=== PATIENT | male | born 1940 | race Caucasian/White ===

== ENCOUNTER 2020-07-08 11:48 | Inpatient (IN) ==
--- NOTE | 2020-07-08 12:26 | Emergency Department Note ---
HPI General Chief complaint: Recheck/Abnormal Lab/Rx Stated complaint: kidney issues, anemia Time Seen by Provider: 07/08/20 12:01 Source: patient and family Mode of arrival: wheelchair Limitations: no limitations History of Present Illness HPI Narrative: Narrative: 80-year-old male presents the emergency department as a transfer from [facility] they were sent here with concerns for hematuria weight loss and blood in the stools as well as overall is deconditioning. Said for the last 3 days he has had pain with urination urinary frequency and blood in his urine. He denies any fevers or anything else or other complaints. They noticed that he was anemic there at 6. He has no history of hematuria or GI bleeds. 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 Does not look like patient is on any blood thinners at this time. Overall patient says he has no complaints said he is more thinks his kids are worried about nothing per the patient. He is denying any chest pain, shortness of breath, abdominal pain, headache, blurry vision, neck pain, back pain, neck pain, changes in bowel movements, pain with urination, pain or tingling of the arms or legs or any other complaints at this time. Related Data Home Medications Medication Instructions Recorded Confirmed No Known Home Meds 07/08/20 07/08/20 Allergies Allergy/AdvReac Type Severity Reaction Status Date / Time Penicillins Allergy Mild Itching Verified 07/08/20 11:50 Review of Systems ROS ROS Narrative: Narrative: All systems ED: reviewed and negative except as stated. [facility] Narrative Patient History Narrative: Narrative: Medical/Surgical/Family History All Active Problems (Updated 07/08/20 @ 15:57 by Sohail Smiley DO) Colonic mass (Acute) Fistula (Acute) Benign prostatic hyperplasia (Acute) KETTY (acute kidney injury) (Acute) Anemia (Acute) Social History Smoking Status: Former smoker Exam Narrative Narrative: Narrative: Vital signs noted General: Awake. Alert. No distress. Skin: Warm. Dry. No rash. HEENT: NCAT. PERRL. EOMI. No conjunctivitis. No nystagmus. No pharyngitis. Membranes moist. No otitis. No rhinitis. Neck: No PTP. Good ROM. No meningeal signs. No stridor. No thyromegaly. No JVD. Cardiovascular: RRR. No murmur. No rubs. No gallops. Respiratory: No respiratory distress. Breath sounds equal. Lungs clear. Gastrointestinal: Abdomen soft. No tenderness. No distention. Normal bowel sounds. No palpable organomegaly or masses. Back: No deformity. No CVAT. Musculoskeletal: No tenderness. No swelling. No erythema. No edema. Good peripheral pulses x 4 Lymphatic: No palpable adenopathy. Neurological: No focal neurological deficits observed. General Limitations: no limitations Course Vital Signs Vital signs: Vital Signs Temperature 98.1 F 07/08/20 11:52 Pulse Rate 80 07/08/20 11:52 Respiratory Rate 16 07/08/20 11:52 Blood Pressure 107/61 07/08/20 11:52 Pulse Oximetry (%) 100 07/08/20 11:52 Temperature 98.1 F 07/08/20 11:52 Pulse Rate 73 07/08/20 14:26 Respiratory Rate 15 07/08/20 14:26 Blood Pressure 143/59 07/08/20 14:17 Pulse Oximetry (%) 100 07/08/20 14:26 MDM MDM Narrative Medical decision making narrative: Narrative: Patient looks well on exam. He does not currently have any complaints this time. We will go ahead and do a Hemoccult on him due to this possible rectal bleeding. We will get a urinalysis CBC CMP and I will go ahead and type and screen him in case he is low that he does need a blood transfusion. Patient does seem to be pale in color. There is no acute vital sign abnormalities. No signs of infection. Unsure the source of what is causing patient's acute anemia but will look into it further at this time. Disposition will be pending result Labs originally came back he was anemic at 6.2 so I did crossmatch him for 2 units and he will get transfused 2 units of packed red blood cells. His creatinine came back at 2.9 there is some acute kidney injury and I think this is all secondary to is causing his anemia as the kidney injury. So I did speak with the urologist about the hematuria they said that hematuria is more of a outpatient work-up and nothing needs to be get done there but they are happy to see the patient if patient gets admitted. 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 Patient does have stool and air in his bladder. This does make sense as patient when I did the digital rectal exam which was negative for Hemoccult had mainly water and fluid that came out. This is not diarrhea that probably was urine actually coming out. This explains his acute kidney injury as there is prostate hypertrophy and secondary to the stool in the bladder he has having outlet obstruction which is then causing the acute kidney injury with hydronephrosis thus causing the anemia secondary to the acute kidney injury. I did speak with the hospitalist Dr. Grossman who agreed to admit the patient. Patient is admitted in stable condition. I did speak with the on-call surgeon Dr. Lind who says normally this is actually an outpatient work-up and could be done in the outpatient setting but beings that he is anemic and had acute kidney injury he will see the patient in consultation on the floor and start the process for the family. Patient was updated of this and he is okay with this plan. The surgeon asked for a CEA which was ordered by myself and is pending he will follow up the results. Lab Data Result diagrams: 07/08/20 12:30 07/08/20 12:31 Labs: Lab Results 07/08/20 07/08/20 07/08/20 Range/Units 12:30 12:31 13:54 WBC 9.1 (4.5-11.0) K/mcL RBC 4.16 L (4.50-5.90) M/mcL Hgb 6.2 L* (13.5-16.5) g/dL Hct 25.1 L (41.0-55.0) % MCV 60.3 L (80.0-100.0) fL MCH 14.9 L (26.0-34.0) pg MCHC 24.7 L (31.0-36.0) g/dL RDW 24.1 H (11.5-14.5) % Plt Count 497 H (140-440) K/mcL MPV 8.5 (7.4-10.4) fL Neut % (Auto) 81.6 H (38.0-78.0) % Lymph % (Auto) 11.1 L (15.0-49.0) % [place] % (Auto) 6.9 (1.0-12.0) % Eos % (Auto) 0.1 (0.0-7.0) % Baso % (Auto) 0.3 (0.0-2.0) % Lymph # (Auto) 1.01 L (1.50-4.80) K/mcL [place] # (Auto) 0.63 (0.10-0.90) K/mcL Eos # (Auto) 0.01 (0.00-0.70) K/mcL Baso # (Auto) 0.03 (0.00-0.20) K/mcL Absolute Neutrophils 7.42 (1.80-8.00) K/mcL PT 14.3 (11.9-14.5) sec INR 1.1 (0.9-1.1) Sodium 142 (133-145) mmol/L Potassium 4.3 (3.3-5.1) mmol/L Chloride 108 (96-108) mmol/L Carbon Dioxide 17 L (22-30) mmol/L Anion Gap 17.0 H (8.0-16.0) BUN 63 H (8-23) mg/dL Creatinine 2.9 H (0.7-1.2) mg/dL GFR Calculation 20 Glucose 122 H (70-105) mg/dL Calcium 9.0 (8.6-10.4) mg/dL Total Bilirubin 0.4 (0.1-1.0) mg/dL AST 12 (<40) U/L ALT 5 (<40) U/L Alkaline Phosphatase 68 (39-117) U/L Total Protein 6.7 (5.9-8.4) gm/dL Albumin 3.1 L (3.2-5.2) gm/dL Globulin 3.6 (2.2-3.7) gm/dL Albumin/Globulin Ratio 0.9 L (1.0-2.3) EKG Data EKG #1: EKG results narrative: EKG is done at 1224 interpreted by myself shows normal sinus rhythm at a rate of 91 QRS 109, QTc 439. There is no acute ST changes no acute T wave changes no other signs of ischemia. No sign of hypertrophy, heart strain, heart block. No WPW/Gotto/HOCM. Impression normal sinus EKG no acute changes. Discharge Plan Patient/Caregiver Discharge Instructions Pt seen by [employer] TECHNICIAN/PA only: No Clinical Impression: Colonic mass, Fistula, Benign prostatic hyperplasia, KETTY (acute kidney injury), Anemia Patient Disposition: Xfer As Inpt ([facility]) Condition: Fair Follow up with: Chloe Umanzor [Primary Care Provider] - Prescriptions: No Action No Known Home Meds RF: 0
[2020-07-08] MEDS ORDERED: 0.9 % SODIUM CHLORIDE 1,000 ML IV ONE (13:02)
[2020-07-08 13:30] LABS: Basophils # (Auto) 0.03 K/mcL (0.00-0.20); Basophils % (Auto) 0.3 % (0.0-2.0); Eosinophils # (Auto) 0.01 K/mcL (0.00-0.70); Eosinophils % (Auto) 0.1 % (0.0-7.0); Hematocrit 25.1 % (41.0-55.0); Hemoglobin 6.2 g/dL (13.5-16.5); Lymphocytes # (Auto) 1.01 K/mcL (1.50-4.80); Lymphocytes % (Auto) 11.1 % (15.0-49.0); Mean Cell Volume 60.3 fL (80.0-100.0); Mean Corpuscular HGB Conc 24.7 g/dL (31.0-36.0); Mean Platelet Volume 8.5 fL (7.4-10.4); Monocytes # (Auto) 0.63 K/mcL (0.10-0.90); Monocytes % (Auto) 6.9 % (1.0-12.0); Neutrophils % (Auto) 81.6 % (38.0-78.0); Platelet Count 497 K/mcL (140-440); RBC 4.16 M/mcL (4.50-5.90); Red Cell Distribution Width 24.1 % (11.5-14.5); WBC 9.1 K/mcL (4.5-11.0)
[2020-07-08] MEDS ORDERED: 0.9 % SODIUM CHLORIDE 250 ML IV SCH ×2 (13:45→18:13)
[2020-07-08 13:51] LABS: ALT/SGPT 5 U/L (<40); AST/SGOT 12 U/L (<40); Albumin 3.1 gm/dL (3.2-5.2); Albumin/Globulin Ratio 0.9 (1.0-2.3); Alkaline Phosphatase 68 U/L (39-117); Bilirubin,Total 0.4 mg/dL (0.1-1.0); Blood Urea Nitrogen 63 mg/dL (8-23); Carbon Dioxide 17 mmol/L (22-30); Chloride 108 mmol/L (96-108); Globulin 3.6 gm/dL (2.2-3.7); Glomerular Filtration Rate 20; Glucose 122 mg/dL (70-105)
[2020-07-08 15:12] LABS: INR 1.1 (0.9-1.1); Prothrombin Time 14.3 sec (11.9-14.5)
--- NOTE | 2020-07-08 15:25 | Cat Scan Report ---
CLINICAL INFORMATION: Hematuria and weight loss. Diarrhea COMPARISON: None. TECHNIQUE: 0.625 mm helical slices were obtained from the mid heart through the subtrochanteric regions. Following reconstruction, 2.5 mm sagittal, coronal and axial reformatted images were processed and reviewed at bone and soft tissue windows.The exam was performed using radiation dose optimization techniques including, but not limited to, automated exposure control, adjustment of the mA and/or kV according to patient size and use of iterative reconstruction technique. FINDINGS: Lung bases show scattered fibrosis. 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 No effusions. The heart is moderately enlarged with extremely heavy mitral annulus ossification. Abdominal images show the noncontrasted liver is unremarkable. There are 4-5 large stones in the gallbladder ranging up to 19 mm. No evidence of gallbladder wall thickening or other signs for cholecystitis. Intrahepatic and common bile ducts are normal caliber: CBD is 5 mm. The noncontrast pancreas and spleen are normal. Aorta biiliac endovascular graft is in satisfactory position. Diameter of the thrombosed [place] of the infrarenal abdominal aorta around the graft is 5 cm. No evidence of perigraft hemorrhage. A 10 x 5.5 soft tissue mass, apparently arising from the mid sigmoid colon, has invaded the left lateral wall of the urinary bladder. 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 There is moderate stool and gas within the urinary bladder. Primary colon carcinoma is suspected. Stomach is unremarkable. There is a 2 cm currently diverticulum projecting the descending duodenum which shows mild wall thickening. The remaining small bowel appendix and remaining colon are all normal. Moderate atrophy of the left kidney with retroperitoneal periphery of the right kidney appreciated a left kidney 7 cm in length the right kidney is 11 cm in length. Moderate left hydronephrosis hydroureter appreciated the distal ureter is encased by the sigmoid malignancy resulting in ureteral obstruction. There is also mild right hydroureter/hydronephrosis to the UVJ. Moderate prostate enlargement likely results in chronic bladder outlet obstruction - there is diffuse wall thickening urinary bladder Bone windows show no osseous abnormalities. IMPRESSION: 1. 10 x 5.5 cm pelvic soft tissue mass, likely arising from the mid sigmoid colon, has invaded the left lateral wall of the urinary bladder creating an colovesical fistula. There is moderate stool and gas within the urinary bladder. Suggest: CT-guided biopsy of the large soft tissue mass. Colon carcinoma is suspected 2. Moderate atrophy of the left kidney with compensatory hypertrophy of the right kidney. Moderate left hydronephrosis and hydroureter noted due to encasement of the ureter by the malignancy in the left false pelvis. There is also mild right hydroureter/hydronephrosis related to chronic bladder outlet narrowing due to enlarged prostate. 3. Cholelithiasis. 4. Aortoiliac endovascular graft. The [place] aorta is thrombosed around the graft. Interpreted and Authenticated by: Nathaniel Xie 07/08/20
[2020-07-08] MEDS ORDERED: ACETAMINOPHEN 325 MG TABLET PO PRN ×2 (16:17→18:13)
[2020-07-08] MEDS ORDERED: morphine 4 MG/ML VIAL IV PRN ×2 (16:17→18:13)
[2020-07-08] MEDS ORDERED: PROCHLORPERAZINE 10 MG/2 ML VIAL IV PRN ×2 (16:17→18:13)
[2020-07-08] MEDS ORDERED: HYDROcodone/APAP 5/325MG TABLET PO PRN (16:17)
[2020-07-08] MEDS ORDERED: 0.9 % SODIUM CHLORIDE 1,000 ML IV SCH (16:30)
--- NOTE | 2020-07-08 18:10 | Internal Med History&Physical ---
HPI History of Present Illness Patient information: Note initiated : 07/08/20 at 6:00 pm Service Date, if different from initiated Date: [] Patient: Shiv Gardner 80 y/o M admitted on 07/08/20 for kidney issues, anemia. Chief Complaint: [] History of present illness: Mr. Gardner is a 80 year old M with a past medical history of AAA that was repaired, COPD as well as an aortic valve replacement who was transferred to our hospital from [facility] due to hematuria, with loss and GI bleeding. As per patient, patient has been having pain with urination, urinary frequency and blood in urine over the past 3 days. In the ER, he was found to have anemia, hemoglobin 6.2. 2 units of PRBC were ordered. 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 Otherwise patient denies headache, dizziness, chest pain, shortness of breath, abdominal pain, nausea, or vomiting. Review of Systems Review of systems: Positive for hematuria and GI bleeding. All other systems were reviewed and are negative. PFSH PFSH All Active Problems Colonic mass (Acute) Fistula (Acute) Benign prostatic hyperplasia (Acute) KETTY (acute kidney injury) (Acute) Anemia (Acute) Social History smoking status: Former smoker MEDS/ALLERGIES Home Medications and Allergies Home Medications Medication Instructions Recorded Confirmed Type No Known Home Meds 07/08/20 07/08/20 History Allergies Allergy/AdvReac Type Severity Reaction Status Date / Time Penicillins Allergy Mild Itching Verified 07/08/20 11:50 EXAM Constitutional Vitals: Temp Pulse Resp BP Pulse Ox 98.1 F 73 15 143/59 100 07/08/20 11:52 07/08/20 14:26 07/08/20 14:26 07/08/20 14:17 07/08/20 14:26 Additional findings Additional findings: General: No acute distress Eye: EMOI, no conjunctival injection. HEENT: supple, no JVD or thyroid megaly Chest: No tenderness Heart: RRR, no gallop Lungs: Rhonchi bilateral Abdomen: Normal bowel sounds, soft, no tenderness Extremities: edema + in both legs, no cyanosis or clubbing Neurology: A+O x 3, no focal neurological deficits Psych: Normal mood DATA Data Completed and Pending Labs: Labs from last 24 hours 07/08/20 07/08/20 07/08/20 13:54 13:26 12:31 WBC RBC Hgb Hct MCV MCH MCHC RDW Plt Count MPV Neut % (Auto) Lymph % (Auto) [place] % (Auto) Eos % (Auto) Baso % (Auto) Lymph # (Auto) [place] # (Auto) Eos # (Auto) Baso # (Auto) Absolute Neutrophils PT 14.3 INR 1.1 Sodium 142 Potassium 4.3 Chloride 108 Carbon Dioxide 17 L Anion Gap 17.0 H BUN 63 H Creatinine 2.9 H GFR Calculation 20 Glucose 122 H Hemoglobin A1c Estim Average Glucose Calcium 9.0 Total Bilirubin 0.4 AST 12 ALT 5 Alkaline Phosphatase 68 Total Protein 6.7 Albumin 3.1 L Globulin 3.6 Albumin/Globulin Ratio 0.9 L Carcinoembryonic Ag 290.7 H 07/08/20 07/08/20 12:30 12:13 WBC 9.1 RBC 4.16 L Hgb 6.2 L* Hct 25.1 L MCV 60.3 L MCH 14.9 L MCHC 24.7 L RDW 24.1 H Plt Count 497 H MPV 8.5 Neut % (Auto) 81.6 H Lymph % (Auto) 11.1 L [place] % (Auto) 6.9 Eos % (Auto) 0.1 Baso % (Auto) 0.3 Lymph # (Auto) 1.01 L [place] # (Auto) 0.63 Eos # (Auto) 0.01 Baso # (Auto) 0.03 Absolute Neutrophils 7.42 PT INR Sodium Potassium Chloride Carbon Dioxide Anion Gap BUN Creatinine GFR Calculation Glucose Hemoglobin A1c Pending Estim Average Glucose Pending Calcium Total Bilirubin AST ALT Alkaline Phosphatase Total Protein Albumin Globulin Albumin/Globulin Ratio Carcinoembryonic Ag A/P Narrative A/P Narrative: 1. Anemia, blood loss and malignancy? Hb 6.2 in the ER, 2units of pRBCs were ordered Repeat CBC in am 2. GI bleeding 3. Colonic mass 4. Colovesicular fistula 5. Cholelithiasis Surgical consult 6. Hematuria? 7. Hydronephrosis and hydroureter, B/L Urology consult 8. KETTY or KETTY on CKD, most likely due to obstructive uropathy Intake and output Avoid nephrotoxic meds Urology consult 9. DVT prophylaxis: Heparin Time Spent With Patient Time: Total time spent is greater than 50% in coordination of care (as documented) at patient's floor/unit and/or counseling patient:
[2020-07-08 19:36] LABS: Hemoglobin A1C 5.1 % Hgb (4.0-6.0)
--- NOTE | 2020-07-08 20:07 | Event Note ---
Event Note Event Note: Parties in Attendance: Patient Pt's decisional Capacity: Yes POLST form completed: not I explained the process regarding CPR and intubation in details to the patient who declined CRP and intubation.
[2020-07-08] MEDS: 0.9 % SODIUM CHLORIDE 1,000 ML IV SCH (21:04)
[2020-07-08] MEDS: 0.9 % SODIUM CHLORIDE 10 ML SYRINGE IV SCH (22:00)
[2020-07-08] MEDS ORDERED: 0.9 % SODIUM CHLORIDE 10 ML SYRINGE IV SCH (22:00)
--- NOTE | 2020-07-08 22:04 | Internal Medicine Consult Note ---
HPI Data of Consult Primary Care Provider: Chloe Umanzor Consult Narrative Patient Information: Note initiated : 07/08/20 at 10:01 pm Service Date, if different from initiated Date: [] Patient: Shiv Gardner 80 y/o M admitted on 07/08/20 for kidney issues, anemia. Patient was found to be cachetic, anemic with HG 6.2, and Cr 2.9. patient reports urine per rectum and urethral discharge that is feculent. He has had intermittent gross hematuria. he denies significant flank pain. CT scan without contrast revealed: IMPRESSION: 1. 10 x 5.5 cm pelvic soft tissue mass, likely arising from the mid sigmoid colon, has invaded the left lateral wall of the urinary bladder creating an colovesical fistula. There is moderate stool and gas within the urinary bladder. Suggest: CT-guided biopsy of the large soft tissue mass. Colon carcinoma is suspected 2. Moderate atrophy of the left kidney with compensatory hypertrophy of the right kidney. Moderate left hydronephrosis and hydroureter noted due to encasement of the ureter by the malignancy in the left false pelvis. There is also mild right hydroureter/hydronephrosis related to chronic bladder outlet narrowing due to enlarged prostate. 3. Cholelithiasis. 4. Aortoiliac endovascular graft. The [place] aorta is thrombosed around the graft. Patient currently resting comfortable in bed. denies fevers, chills, nausea, emesis. He understands he has a pelvic mass. While he has made himself DNR, he is amenable to further work up and knowing his options from conservative management with minimal intervention to surgery. He feels improved after transfusion one unit pRBC Chief Complaint: [] cc:: CC: Florina Grossman Constitutional Constitutional: Present anorexia, fatigue and weight loss EENT Eyes: Absent blurry vision, itchy eyes and pain Cardiovascular Cardiovascular: Absent chest pain at rest, chest pain with activity and dyspnea Respiratory Respiratory: Absent cough, wheezing and stridor Gastrointestinal Gastrointestinal: Present as per HPI Genitourinary Genitourinary: as per HPI Musculoskeletal Musculoskeletal: Present muscle weakness; Absent numbness and tingling Integumentary Integumentary: Absent pruritus, rash and skin ulcer Neurological Neurological: Present weakness; Absent memory loss and numbness Psychiatric Psychiatric: Absent anxiety, confusion and memory loss Endocrine Endocrine: Present change in body appearance and fatigue; Absent palpitations Hematologic/Lymphatic Hematologic/Lymphatic: Present easy bleeding and easy bruising PFSH PFSH All Active Problems (Updated 07/08/20 @ 23:27 by Antione Fletcher MD) Hydronephrosis (Acute) Colonic mass (Acute) Fistula (Acute) Benign prostatic hyperplasia (Acute) KETTY (acute kidney injury) (Acute) Anemia (Acute) Social History smoking status: Former smoker MEDS/ALLERGIES Home Medications and Allergies Home Medications Medication Instructions Recorded Confirmed Type No Known Home Meds 07/08/20 07/08/20 History Allergies Allergy/AdvReac Type Severity Reaction Status Date / Time Penicillins Allergy Mild Itching Verified 07/08/20 11:50 EXAM Constitutional Vitals: Temp Pulse Resp BP Pulse Ox 97.7 F 80 26 H 134/55 99 07/08/20 18:53 07/08/20 18:53 07/08/20 18:53 07/08/20 18:53 07/08/20 18:53 General appearance: cooperative, no acute distress and thin Head Head exam: Present atraumatic and normocephalic Eye Eye exam: Present EOMI and normal appearance; Absent scleral icterus Respiratory Respiratory exam: Absent respiratory distress, stridor and wheezes Cardiovascular Cardiovascular exam: Present RRR GI/Abdominal GI/Abdominal exam: Absent guarding, rebound and tenderness Neurological Exam Neurological exam: Present alert and oriented X3 Psychiatric Psychiatric exam: Present normal affect; Absent agitated and anxious DATA Data Completed and Pending Labs: Labs from last 24 hours 07/08/20 07/08/20 07/08/20 13:54 13:26 12:31 WBC RBC Hgb Hct MCV MCH MCHC RDW Plt Count MPV Neut % (Auto) Lymph % (Auto) [place] % (Auto) Eos % (Auto) Baso % (Auto) Lymph # (Auto) [place] # (Auto) Eos # (Auto) Baso # (Auto) Absolute Neutrophils PT 14.3 INR 1.1 Sodium 142 Potassium 4.3 Chloride 108 Carbon Dioxide 17 L Anion Gap 17.0 H BUN 63 H Creatinine 2.9 H GFR Calculation 20 Glucose 122 H Hemoglobin A1c Estim Average Glucose Calcium 9.0 Total Bilirubin 0.4 AST 12 ALT 5 Alkaline Phosphatase 68 Total Protein 6.7 Albumin 3.1 L Globulin 3.6 Albumin/Globulin Ratio 0.9 L Carcinoembryonic Ag 290.7 H 07/08/20 07/08/20 12:30 12:13 WBC 9.1 RBC 4.16 L Hgb 6.2 L* Hct 25.1 L MCV 60.3 L MCH 14.9 L MCHC 24.7 L RDW 24.1 H Plt Count 497 H MPV 8.5 Neut % (Auto) 81.6 H Lymph % (Auto) 11.1 L [place] % (Auto) 6.9 Eos % (Auto) 0.1 Baso % (Auto) 0.3 Lymph # (Auto) 1.01 L [place] # (Auto) 0.63 Eos # (Auto) 0.01 Baso # (Auto) 0.03 Absolute Neutrophils 7.42 PT INR Sodium Potassium Chloride Carbon Dioxide Anion Gap BUN Creatinine GFR Calculation Glucose Hemoglobin A1c 5.1 Estim Average Glucose 100 Calcium Total Bilirubin AST ALT Alkaline Phosphatase Total Protein Albumin Globulin Albumin/Globulin Ratio Carcinoembryonic Ag A/P Assessment and plan (1) Colonic mass: Status: Acute (2) Fistula: Status: Acute (3) Benign prostatic hyperplasia: Status: Acute Qualifiers: Lower urinary tract symptom detail: urinary obstruction Lower urinary tract symptom presence: symptoms present Qualified Code(s): N40.1 - Benign prostatic hyperplasia with lower urinary tract symptoms; N13.8 - Other obstructive and reflux uropathy (4) Hydronephrosis: Status: Acute Narrative A/P Narrative: Discussion had with patient at bedside about potential work up and options. He has excellent comprehension of the process and his pathology. He appreciates that we will strive to present a breathe of options from conservative management to full intervention and guide his care based on his wishes. Discussion had with general surgery and the hospitalist. -the main concern from a urology standpoint short term is his renal insufficiency and the masses location over the left ureter and potential invasion into the bladder (and mild right hydronephrosis as well) - does this patient need urinary diversion with nephrostomy tubes. IR is not available at this facility. If is his renal insufficiency does not improve with transfusion and fluids, then need to transfer him. -if his Cr improves, then can plan further work up with MRI abdomen and pelvis (likely without contrast unless his Cr improves sufficiently) to better delineate the mass and its margins -would tentatively plan to take him to the OR for diagnostic cystoscopy, fistulogram, retrograde pyelograms and possible ureteral stents on Monday -would recommend NO MEYERS catheter until we know the extent of the fistula and potential invasion into the bladder wall as there is risk for significant bleeding. He is draining his urine per fistula to his rectum and this is manageable for now. -barrier cream to perineum as moisture protection. -urine culture WILL BE POSITIVE. If he remains asymptomatic for infection, would not treat as such is colonized from his fistula and will never be sterile. -follow up Cr, and if improving, then get MRI abdomen and pelvic. If worse, then transfer and consider nephrostomy tubes. Time Spent With Patient Time: Total time spent is greater than 50% in coordination of care (as documented) at patient's floor/unit and/or counseling patient: Total time spent with greater than 50% in coordination of care (as documented) at patient's floor/unit and/or counseling patient:: 25 - 35 minutes
[2020-07-08 22:36] LABS: Hematocrit 26.2 % (41.0-55.0)
[2020-07-08 22:37] LABS: Hemoglobin 7.3 g/dL (13.5-16.5)
[2020-07-08 23:01] LABS: Glomerular Filtration Rate 26
[2020-07-09] MEDS: 0.9 % SODIUM CHLORIDE 10 ML SYRINGE IV SCH ×3 (06:29→21:00)
[2020-07-09 06:45] LABS: Basophils # (Auto) 0.02 K/mcL (0.00-0.20); Basophils % (Auto) 0.3 % (0.0-2.0); Eosinophils # (Auto) 0.03 K/mcL (0.00-0.70); Eosinophils % (Auto) 0.4 % (0.0-7.0); Hematocrit 27.8 % (41.0-55.0); Hemoglobin 7.4 g/dL (13.5-16.5); Lymphocytes # (Auto) 0.91 K/mcL (1.50-4.80); Lymphocytes % (Auto) 13.6 % (15.0-49.0); Mean Corpuscular HGB Conc 26.6 g/dL (31.0-36.0); Mean Platelet Volume 8.4 fL (7.4-10.4); Monocytes # (Auto) 0.53 K/mcL (0.10-0.90); Monocytes % (Auto) 7.9 % (1.0-12.0); Neutrophils % (Auto) 77.8 % (38.0-78.0); Platelet Count 391 K/mcL (140-440); RBC 4.21 M/mcL (4.50-5.90); Red Cell Distribution Width 28.4 % (11.5-14.5); WBC 6.7 K/mcL (4.5-11.0)
[2020-07-09 07:19] LABS: Phosphorous 3.6 mg/dL (2.5-4.5)
[2020-07-09 07:28] LABS: Ferritin 24.1 ng/mL (30.0-400.0)
--- NOTE | 2020-07-09 10:04 | General Surgery Consult Note ---
HPI Data of Consult Consult date: 07/09/20 Primary Care Provider: Chloe Umanzor Consult Narrative Patient Information: Note initiated : 07/09/20 at 10:00 am Service Date, if different from initiated Date: [] Patient: Shiv Gardner 80 y/o M admitted on 07/08/20 for kidney issues, anemia. 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 CEA 290. Pt reports a significant decline in healthy beginning several months ago - loosi ng 80lbs of weight with early satiety and disinterest in flood and growing fatigue. One month ago he noted the passage of occasional blood in stool both bright read and more dark clots. He began to have pneumaturia and debris in urine several weeks ago and with significant dysuria. He was seen at OSH yesterday after his daughter convinced him to undergo workup where he was noted to be ill as above and transferred. Today pt is feeling significantly better after 2 units PRBC. He continues to pass flatus and has frequent liquid stools c/w passage of urine into sigmoid colon. No abdominal pain or distention. His Cr improved from 2.9 - > 2.3 with blood yesterday, today Cr pending Hb now 7.4 At home most amount of activity is moving around house with walker - limited by SOB Likely has heart failure with BNP of 19K PMH: ? 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 via sternotomy R elbow surgery Hm meds - OTC pain medicaitons Allergy - PNC - rash Soc - Lives locally, 2PPD smoking hx x30yrs now 15yrs remote, No etoh, no hx of excessive drinking, no drugs Fam Hx - no family hx of colon or rectal cancers Chief complaint: pelvic mass cc:: CC: Florina Grossman Constitutional Constitutional: Present fatigue, lethargy, weakness and weight loss; Absent increased appetite EENT Eyes: Present dry eye Nose, mouth and throat: Present hoarseness Cardiovascular Cardiovascular: Absent chest pain at rest and diaphoresis Respiratory Respiratory: Present dyspnea; Absent hemoptysis Gastrointestinal Gastrointestinal: Present diarrhea, early satiety and loose stools; Absent coffee ground emesis and melena Genitourinary Genitourinary: urinary frequency Musculoskeletal Musculoskeletal: Present limited range of motion Integumentary Integumentary: Absent rash Neurological Neurological: Absent loss of vision Psychiatric Psychiatric: Absent auditory hallucinations Endocrine Endocrine: Present deeping of the voice Hematologic/Lymphatic Hematologic/Lymphatic: Absent lymphadenopathy Allergic/Immunologic Allergic/Immunologic: Absent tongue swelling PFSH PFSH All Active Problems (Updated 07/09/20 @ 11:17 by David Lind MD) Pelvic mass (Acute) Hydronephrosis (Acute) Colonic mass (Acute) Fistula (Acute) Benign prostatic hyperplasia (Acute) KETTY (acute kidney injury) (Acute) Anemia (Acute) Social History smoking status: Former smoker MEDS/ALLERGIES Home Medications and Allergies Home Medications Medication Instructions Recorded Confirmed Type No Known Home Meds 07/08/20 07/08/20 History Allergies Allergy/AdvReac Type Severity Reaction Status Date / Time Penicillins Allergy Mild Itching Verified 07/08/20 11:50 Physical Examination Vital Signs Vital signs: Temp Pulse Resp BP Pulse Ox 37.1 C 79 18 125/62 95 07/09/20 08:00 07/09/20 08:00 07/09/20 08:00 07/09/20 03:24 07/09/20 08:00 General physical appearance General physical exam: no distress, no pain and cachectic; negative well nourished Eyes Eye exam: PERRL and normal ocular movement ENT ENT exam: other (adentulous ) Head Head exam expanded IM: Absent abrasion Neck Neck exam: no masses, trachea midline and no lymphadenopathy Cardiovascular Cardiovascular: MIdline sternotomy scar well healed, irregular HR, 2/6 systolic creshendo/decrescendo at R sternal border, S4, no rub. Respiratory Respiratory exam: other (Breath sounds nearly inaudiable - very distant, no adventital sounds) Abdomen Abdomen: Present soft (Thin scaphoid abdomen, no surgical scars. BS present - not highpitched, no rushes, dull to perucssion. Tender to palpation undercostal margin along R lobe of liver. Palpable minimally mobile mass in L iliac fossa - nontender. No inguinal LAD) Rectum Rectum: Present no tenderness (Large prostate. I am able to feel mass at extent of finger - hard nodular. Feels contiguous with sacrum posteriorly) Integumentary Integumentary: Present other (2x2mm ulcer on sacrum into dermis) Neurologic Neurologic: Present normal coordination; Absent confused Musculoskeletal Musculoskeletal: Present other (kyphotic) Psychiatric Psychiatric: Present oriented to time, oriented to person, oriented to place and memory intact Results Labs Result diagrams: 07/09/20 05:16 07/08/20 22:04 Labs: Abnormal lab results 07/08/20 07/08/20 07/08/20 Range/Units 12:30 12:31 13:26 RBC 4.16 L (4.50-5.90) M/mcL Hgb 6.2 L* (13.5-16.5) g/dL Hct 25.1 L (41.0-55.0) % MCV 60.3 L (80.0-100.0) fL MCH 14.9 L (26.0-34.0) pg MCHC 24.7 L (31.0-36.0) g/dL RDW 24.1 H (11.5-14.5) % Plt Count 497 H (140-440) K/mcL Neut % (Auto) 81.6 H (38.0-78.0) % Lymph % (Auto) 11.1 L (15.0-49.0) % Lymph # (Auto) 1.01 L (1.50-4.80) K/mcL Carbon Dioxide 17 L (22-30) mmol/L Anion Gap 17.0 H (8.0-16.0) BUN 63 H (8-23) mg/dL Creatinine 2.9 H (0.7-1.2) mg/dL Glucose 122 H (70-105) mg/dL Iron (61-157) ug/dL Transferrin % Sat (20-50) % Ferritin (30.0-400.0) ng/mL NT-Pro-B Natriuret Pep (<450.0) pg/mL Albumin 3.1 L (3.2-5.2) gm/dL Albumin/Globulin Ratio 0.9 L (1.0-2.3) Carcinoembryonic Ag 290.7 H (<3.4) ng/mL 07/08/20 07/08/20 07/09/20 Range/Units 22:04 22:04 05:16 RBC (4.50-5.90) M/mcL Hgb 7.3 L (13.5-16.5) g/dL Hct 26.2 L (41.0-55.0) % MCV (80.0-100.0) fL MCH (26.0-34.0) pg MCHC (31.0-36.0) g/dL RDW (11.5-14.5) % Plt Count (140-440) K/mcL Neut % (Auto) (38.0-78.0) % Lymph % (Auto) (15.0-49.0) % Lymph # (Auto) (1.50-4.80) K/mcL Carbon Dioxide (22-30) mmol/L Anion Gap (8.0-16.0) BUN (8-23) mg/dL Creatinine 2.3 H (0.7-1.2) mg/dL Glucose (70-105) mg/dL Iron 20 L (61-157) ug/dL Transferrin % Sat 9 L (20-50) % Ferritin 24.1 L (30.0-400.0) ng/mL NT-Pro-B Natriuret Pep 76143.0 H (<450.0) pg/mL Albumin (3.2-5.2) gm/dL Albumin/Globulin Ratio (1.0-2.3) Carcinoembryonic Ag (<3.4) ng/mL 07/09/20 Range/Units 05:16 RBC 4.21 L (4.50-5.90) M/mcL Hgb 7.4 L (13.5-16.5) g/dL Hct 27.8 L (41.0-55.0) % MCV 66.0 L (80.0-100.0) fL MCH 17.6 L (26.0-34.0) pg MCHC 26.6 L (31.0-36.0) g/dL RDW 28.4 H (11.5-14.5) % Plt Count (140-440) K/mcL Neut % (Auto) (38.0-78.0) % Lymph % (Auto) 13.6 L (15.0-49.0) % Lymph # (Auto) 0.91 L (1.50-4.80) K/mcL Carbon Dioxide (22-30) mmol/L Anion Gap (8.0-16.0) BUN (8-23) mg/dL Creatinine (0.7-1.2) mg/dL Glucose (70-105) mg/dL Iron (61-157) ug/dL Transferrin % Sat (20-50) % Ferritin (30.0-400.0) ng/mL NT-Pro-B Natriuret Pep (<450.0) pg/mL Albumin (3.2-5.2) gm/dL Albumin/Globulin Ratio (1.0-2.3) Carcinoembryonic Ag (<3.4) ng/mL Diabetes panel 07/08/20 07/08/20 07/08/20 Range/Units 12:13 12:31 22:04 Sodium 142 (133-145) mmol/L Potassium 4.3 (3.3-5.1) mmol/L Chloride 108 (96-108) mmol/L Carbon Dioxide 17 L (22-30) mmol/L BUN 63 H (8-23) mg/dL Creatinine 2.9 H 2.3 H (0.7-1.2) mg/dL Glucose 122 H (70-105) mg/dL Hemoglobin A1c 5.1 (4.0-6.0) % Hgb Calcium 9.0 (8.6-10.4) mg/dL AST 12 (<40) U/L ALT 5 (<40) U/L Alkaline Phosphatase 68 (39-117) U/L Total Protein 6.7 (5.9-8.4) gm/dL Albumin 3.1 L (3.2-5.2) gm/dL Calcium panel 07/08/20 07/09/20 Range/Units 12:31 05:16 Calcium 9.0 (8.6-10.4) mg/dL Phosphorus 3.6 (2.5-4.5) mg/dL Albumin 3.1 L (3.2-5.2) gm/dL Pituitary panel 07/08/20 07/08/20 Range/Units 12:31 22:04 Sodium 142 (133-145) mmol/L Potassium 4.3 (3.3-5.1) mmol/L Chloride 108 (96-108) mmol/L Carbon Dioxide 17 L (22-30) mmol/L BUN 63 H (8-23) mg/dL Creatinine 2.9 H 2.3 H (0.7-1.2) mg/dL Glucose 122 H (70-105) mg/dL Calcium 9.0 (8.6-10.4) mg/dL Adrenal panel 07/08/20 07/08/20 Range/Units 12:31 22:04 Sodium 142 (133-145) mmol/L Potassium 4.3 (3.3-5.1) mmol/L Chloride 108 (96-108) mmol/L Carbon Dioxide 17 L (22-30) mmol/L BUN 63 H (8-23) mg/dL Creatinine 2.9 H 2.3 H (0.7-1.2) mg/dL Glucose 122 H (70-105) mg/dL Calcium 9.0 (8.6-10.4) mg/dL Total Bilirubin 0.4 (0.1-1.0) mg/dL AST 12 (<40) U/L ALT 5 (<40) U/L Alkaline Phosphatase 68 (39-117) U/L Total Protein 6.7 (5.9-8.4) gm/dL Albumin 3.1 L (3.2-5.2) gm/dL All other labs normal. 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 Mass Identity With markedly elevated CEA mass is almost certainly a colon primary adenocarcinoma. Needs tissue dx. - Plan for colon prep tomorrow, after KETTY given more time to recover, with plans for colonoscopy to obtain dx and eval for more proximal metacrenous leasions. Metastatic work up - With R hepatic tenderness and very high CEA I am concerned for Liver mets - Close review of low sensitivity non-contrast CT on admission does not reveal radiolucent lesions. - Plan for hepatic MRI with pelvic MRI as below - Needs CT non-con thin lungs for eval of pulm mets Resectability: - Mass is large involves a moderate segment of sigmoid colon and L bladder wall. More concerning however it appers to encase the L ureter causing moderate hydronephrosis. Most concerning however - the mass appears to encase the L common iliac artery - with underling EVAR stent in place as well as L iliac vein. The mass encases the internal iliac artery and a small segment of the external iliac artery. Further more the sacral promontory abuts tumor and there is cortical erosion of anterior S2 near the L Ant sacral foremen at S2 on bone windows. - The overall impression is one of nonresectability - however given images are a non-contrast study, reasonable to proceed with pelvic MRI to asses tissue planes. - As degree of involvement is critical to making respectability decision prefer contrast MR, will await KETTY resolution before performing. Fitness/Desire for surgery if indicated: - Agree with echo to eval cardiac function - Pt is DNR/DNI he wants a workup to understand extent of disease but is not en thusiastic about potentially taking on a large morbid surgery such as a multi- visceral pelvic exenteration. May be more amenable to palliative approach with ureter stenting, trial of neoadj/palliative chemo. Plan summary: Volume resus and follow correction of KETTY CT chest - thins, today Colonoscopy prep tomorrow with plan for colonoscopy 07/11 Contrast MRI pelvis and liver once/if KETTY resolves Will continue to follow with you David Lind MD General Surgery Time Spent With Patient Time: Total time spent is greater than 50% in coordination of care (as documented) at patient's floor/unit and/or counseling patient:
[2020-07-09] MEDS: 0.9 % SODIUM CHLORIDE 1,000 ML IV SCH ×3 (10:34→22:54)
--- NOTE | 2020-07-09 14:02 | Internal Med Progress Note ---
SUBJECTIVE Subjective Patient information: Note initiated : 07/09/20 at 1:59 pm Service Date, if different from initiated Date: [] Patient: Shiv Gardner a 80 y/o M admitted on 07/08/20 for kidney issues, anemia. Chief Complaint: [] Mr. Gardner is a 80 year old M with a past medical history of AAA that was repaired, COPD as well as an aortic valve replacement who was transferred to our hospital from [facility] due to hematuria, with loss and GI bleeding. As per patient, patient has been having pain with urination, urinary frequency and blood in urine over the past 3 days. In the ER, he was found to have anemia, hemoglobin 6.2. 2 units of PRBC were ordered. 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 Otherwise patient denies headache, dizziness, chest pain, shortness of breath, abdominal pain, nausea, or vomiting. 07/09 The patient does not have any complaints. Hemoglobin 7.4 today. He received 2 units of PRBCs yesterday. He will probably have colonoscopy biopsy on Monday Monitor creatinine Review of Systems Review of systems: Positive for hematuria and GI bleeding. All other systems were reviewed and are negative. Constitutional Vitals: Vital Signs Temp Pulse Resp BP Pulse Ox 98.4 F 86 18 130/86 96 07/09/20 12:00 07/09/20 12:00 07/09/20 12:00 07/09/20 12:00 07/09/20 12:00 Period Temp Pulse Resp BP Sys/[place]atham Pulse Ox Last 24 Hr 97.1 F-98.7 F 60-94 14-26 124-163/50-92 95-100 Intake and Output 07/08/20 07/09/20 07/09/20 21:59 05:59 13:59 Intake Total 7278 369 8761 Output Total 2 1 2 Balance 829 97 6585 Weight 70.307 kg 72.575 kg 72.575 kg Patient Weight 07/10/20 05:59 Weight 72.575 kg Intake & Output: Intake & Output 07/08/20 07/09/20 07/09/20 21:59 05:59 13:59 Intake Total 4867 292 9640 Output Total 2 1 2 Balance 932 85 6014 Weight 70.307 kg 72.575 kg 72.575 kg Intake: Nourishment/Supplement quantity 120 (ml) IV 1000 1000 Sodium Chloride 0.9% 1,000 ml @ 1000 1000 75 mls/hr IV .[id number] [facility] Rx#: [id number] Oral 100 60 Output: # of times incontinent of urine 2 1 2 Other: Meal Lunch Percent of Meal Consumed 25% Feeding Ability Assist with Tray Set Up Nourishment/Supplement name Enlive Stool Size Moderate Smear Stool Color Brown Stool Consistency Liquid Watery Loose # Bowel Movements 1 # of times incontinent of 1 1 Bowels Additional findings Additional findings: General: No acute distress Eye: EMOI, no conjunctival injection. HEENT: supple, no JVD or thyroid megaly Chest: No tenderness Heart: RRR, no gallop Lungs: Rhonchi bilateral Abdomen: Normal bowel sounds, soft, no tenderness Extremities: edema + in both legs, no cyanosis or clubbing Neurology: A+O x 3, no focal neurological deficits Psych: Normal mood OBJ DATA Labs CBC & Chem 7: 07/09/20 05:16 07/08/20 22:04 Labs: Abnormal Lab Results 07/09/20 07/09/20 07/08/20 05:16 05:16 22:04 RBC 4.21 L Hgb 7.4 L Hct 27.8 L MCV 66.0 L MCH 17.6 L MCHC 26.6 L RDW 28.4 H Plt Count Neut % (Auto) Lymph % (Auto) 13.6 L Lymph # (Auto) 0.91 L Carbon Dioxide Anion Gap BUN Creatinine 2.3 H Glucose Iron 20 L Transferrin % Sat 9 L Ferritin 24.1 L NT-Pro-B Natriuret Pep 72136.0 H Albumin Albumin/Globulin Ratio Carcinoembryonic Ag 07/08/20 07/08/20 07/08/20 22:04 13:26 12:31 RBC Hgb 7.3 L Hct 26.2 L MCV MCH MCHC RDW Plt Count Neut % (Auto) Lymph % (Auto) Lymph # (Auto) Carbon Dioxide 17 L Anion Gap 17.0 H BUN 63 H Creatinine 2.9 H Glucose 122 H Iron Transferrin % Sat Ferritin NT-Pro-B Natriuret Pep Albumin 3.1 L Albumin/Globulin Ratio 0.9 L Carcinoembryonic Ag 290.7 H 07/08/20 12:30 RBC 4.16 L Hgb 6.2 L* Hct 25.1 L MCV 60.3 L MCH 14.9 L MCHC 24.7 L RDW 24.1 H Plt Count 497 H Neut % (Auto) 81.6 H Lymph % (Auto) 11.1 L Lymph # (Auto) 1.01 L Carbon Dioxide Anion Gap BUN Creatinine Glucose Iron Transferrin % Sat Ferritin NT-Pro-B Natriuret Pep Albumin Albumin/Globulin Ratio Carcinoembryonic Ag Meds: Medications Acetaminophen (Tylenol) 650 mg PO Q6HP PRN; Protocol PRN Reason: Per Pain Protocol/Fever > 101 Hydrocodone Bitart/Acetaminophen ([place] 5/325mg) 1 tab PO Q6HP PRN; Protocol PRN Reason: Per Pain Protocol Sodium Chloride (Sodium Chloride 0.9%) 1,000 mls @ 75 mls/hr IV .[id number] [facility] Last Admin: 07/09/20 12:03 Dose: 75 mls/hr Documented by: Morphine Sulfate (Morphine) 2 mg IV Q4HP PRN; Protocol PRN Reason: Per Pain Protocol Polyethylene Glycol/Electrolytes (Golytely) 4,000 ml PO ONCE ONE Stop: 07/10/20 08:01 Prochlorperazine (Compazine) 5 mg IV Q6HP PRN PRN Reason: Nausea And Vomiting Sodium Chloride (Saline Flush) 10 ml IV Q8 [facility] Last Admin: 07/09/20 06:29 Dose: Not Given Documented by: A/P Narrative A/P Narrative: 1. Anemia, blood loss and malignancy? Hb 6.2 in the ER, 2units of pRBCs were ordered Repeat CBC in am 2. GI bleeding 3. Colonic mass 4. Colovesicular fistula 5. Cholelithiasis GS Dr. Lind is on board. Really appreciate it. Pt may have colonoscopy and biopsy on Monday. NPO after midnight on Monday. 6. Hematuria? 7. Hydronephrosis and hydroureter, B/L Urology Dr. Fletcher is on board. Really appreciate it. 8. KETTY or KETTY on CKD, most likely due to obstructive uropathy Intake and output Avoid nephrotoxic meds Urology Dr. Fletcher is on board. 9. DVT prophylaxis: SCD. No pharmacological DVT Prophylaxis due to bleeding. Time Spent With Patient Time: Total time spent is greater than 50% in coordination of care (as documented) at patient's floor/unit and/or counseling patient: QUALITY VTE Deep Vein Thrombosis/Pulmonary Embolism Present on Admission: No
--- NOTE | 2020-07-09 16:34 | Cat Scan Report ---
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 Evaluate for metastases history of chronic smoking COMPARISON: None TECHNIQUE: 0.625 mm axial slices were obtained from the lung apices through the bases without intravenous contrast. 2.5 mm Sagittal, coronal and axial reformatted images were processed and reviewed at bone, lung and soft tissue windows. 7 mm axial MIP images were also reconstructed to optimize pulmonary nodule detection.The exam was performed using radiation dose optimization techniques including, but not limited to, automated exposure control, adjustment of the mA and/or kV according to patient size and use of iterative reconstruction technique. FINDINGS: Pulmonary parenchymal windows show moderate centrilobular emphysema featuring chronic bronchitis with elevated lung volumes and wall thickening/dilatation of bronchi. There are multiple bullae predominantly within the upper lobes and scattered scarring in the periphery of both lower lobes. There is a 9 mm well-circumscribed pleural-based nodule in the posterior segment of the right upper lobe on image 45. No other nodules appreciated. No infiltrates. Pleural spaces are normal. Mediastinal windows show moderate cardiomegaly. Heavy mitral annular valve calcification is seen. There is also calcification in the aortic valve. CABG/bypass changes noted. The central pulmonary artery are moderately enlarged: main pulmonary diameter 4.6 cm. Thoracic aorta normal caliber and contains heavy atherosclerotic plaque particularly the ascending thoracic aorta versus very heavy calcification. There is no adenopathy in the mediastinal hilar or axillary region. The thyroid is diminutive. The esophagus is grossly normal. Bone windows show no osseous metastases. Moderate degenerative disc disease throughout the thoracic spine IMPRESSION: 1. 9 mm well-circumscribed pleural-based nodule in the posterior segment of the right upper lobe. This is more likely benign subpulmonic lymph node rather than primary lung carcinoma or a metastasis. 2. Moderate centrilobular emphysema. 3. Moderate central pulmonary artery enlargement compatible with pulmonary hypertension related to emphysema. 4. Moderate cardiomegaly with heavy calcification in the aortic and mitral valves. Sternotomy/CABG changes noted. Interpreted and Authenticated by: Nathaniel Xie 07/09/20
[2020-07-09] MEDS: PANTOPRAZOLE 40 MG TABLET PO SCH (20:57)
[2020-07-10] MEDS: 0.9 % SODIUM CHLORIDE 1,000 ML IV SCH ×4 (02:28→16:13)
[2020-07-10] MEDS: 0.9 % SODIUM CHLORIDE 10 ML SYRINGE IV SCH ×2 (05:48→13:37)
[2020-07-10 07:52] LABS: Basophils # (Auto) 0.04 K/mcL (0.00-0.20); Basophils % (Auto) 0.7 % (0.0-2.0); Eosinophils % (Auto) 1.7 % (0.0-7.0); Hematocrit 29.2 % (41.0-55.0); Hemoglobin 7.7 g/dL (13.5-16.5); Lymphocytes # (Auto) 1.38 K/mcL (1.50-4.80); Lymphocytes % (Auto) 23.5 % (15.0-49.0); Mean Cell Volume 68.1 fL (80.0-100.0); Mean Corpuscular HGB Conc 26.4 g/dL (31.0-36.0); Mean Platelet Volume 8.5 fL (7.4-10.4); Monocytes # (Auto) 0.55 K/mcL (0.10-0.90); Monocytes % (Auto) 9.4 % (1.0-12.0); Neutrophils % (Auto) 64.7 % (38.0-78.0); Platelet Count 351 K/mcL (140-440); RBC 4.29 M/mcL (4.50-5.90); Red Cell Distribution Width 28.6 % (11.5-14.5); WBC 5.9 K/mcL (4.5-11.0)
[2020-07-10] MEDS ORDERED: PEG 3350/NA SULF,BICARB,CL/KCL 4,000 ML ORAL.SOL PO ONE (08:00)
[2020-07-10] MEDS: FERROUS SULFATE 325 MG TABLET PO SCH (08:14)
[2020-07-10 08:23] LABS: Blood Urea Nitrogen 37 mg/dL (8-23); Calcium 8.6 mg/dL (8.6-10.4); Carbon Dioxide 16 mmol/L (22-30); Chloride 118 mmol/L (96-108); Glomerular Filtration Rate 37; Glucose 84 mg/dL (70-105)
--- NOTE | 2020-07-10 11:54 | Internal Med Progress Note ---
SUBJECTIVE Subjective Patient information: Note initiated : 07/10/20 at 11:53 am Service Date, if different from initiated Date: [] Patient: Shiv Gardner 80 y/o M admitted on 07/08/20 for kidney issues, anemia. Chief Complaint: [] Mr. 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 As per patient, patient has been having pain with urination, urinary frequency and blood in urine over the past 3 days. In the ER, he was found to have anemia, hemoglobin 6.2. 2 units of PRBC were ordered. 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 Otherwise patient denies headache, dizziness, chest pain, shortness of breath, abdominal pain, nausea, or vomiting. 07/09 The patient does not have any complaints. Hemoglobin 7.4 today. He received 2 units of PRBCs yesterday. He will probably have colonoscopy biopsy on Monday Monitor creatinine 07/10 When I saw this patient this morning, he was sleeping. He does not have any complaints. He has a tachycardia and tachypnea at times -increased IV fluid to 100 cc/h RN study compatible with iron deficiency -iron supplement Review of Systems Review of systems: Positive for hematuria and GI bleeding. All other systems were reviewed and are negative. Constitutional Vitals: Vital Signs Temp Pulse Resp BP Pulse Ox 99.3 F H 67 18 145/55 98 07/10/20 07:58 07/10/20 07:58 07/10/20 07:58 07/10/20 07:58 07/10/20 07:58 Period Temp Pulse Resp BP Sys/Latham Pulse Ox Last 24 Hr 97.6 F-99.8 F 62-98 16-24 120-145/53-86 94-98 Intake and Output 07/09/20 07/10/20 07/10/20 21:59 05:59 13:59 Intake Total 120 1200 Output Total 3 Balance 117 1200 Weight 72.802 kg Intake & Output: Intake & Output 07/09/20 07/10/20 07/10/20 21:59 05:59 13:59 Intake Total 120 1200 Output Total 3 Balance 117 1200 Weight 72.802 kg Intake: IV 1000 Sodium Chloride 0.9% 1,000 ml @ 1000 75 mls/hr IV .[id number] [facility] Rx#: [id number] Oral 120 200 Output: # of times incontinent of urine 3 Other: Stool Size Moderate Stool Color Brown Stool Consistency Liquid # Bowel Movements 1 # of times incontinent of 1 Bowels Additional findings Additional findings: General: No acute distress Eye: EMOI, no conjunctival injection. HEENT: supple, no JVD or thyroid megaly Chest: No tenderness Heart: RRR, no gallop Lungs: Rhonchi bilateral Abdomen: Normal bowel sounds, soft, no tenderness Extremities: edema + in both legs, no cyanosis or clubbing Neurology: A+O x 3, no focal neurological deficits Psych: Normal mood OBJ DATA Labs CBC & Chem 7: 07/10/20 05:50 07/10/20 05:50 Labs: Abnormal Lab Results 07/10/20 07/10/20 07/09/20 05:50 05:50 05:16 RBC 4.29 L 4.21 L Hgb 7.7 L 7.4 L Hct 29.2 L 27.8 L MCV 68.1 L 66.0 L MCH 17.9 L 17.6 L MCHC 26.4 L 26.6 L RDW 28.6 H 28.4 H Plt Count Neut % (Auto) Lymph % (Auto) 13.6 L Lymph # (Auto) 1.38 L 0.91 L Sodium 148 H Chloride 118 H Carbon Dioxide 16 L Anion Gap BUN 37 H Creatinine 1.7 H Glucose Iron Transferrin % Sat Ferritin NT-Pro-B Natriuret Pep Albumin Albumin/Globulin Ratio Carcinoembryonic Ag 07/09/20 07/08/20 07/08/20 05:16 22:04 22:04 RBC Hgb 7.3 L Hct 26.2 L MCV MCH MCHC RDW Plt Count Neut % (Auto) Lymph % (Auto) Lymph # (Auto) Sodium Chloride Carbon Dioxide Anion Gap BUN Creatinine 2.3 H Glucose Iron 20 L Transferrin % Sat 9 L Ferritin 24.1 L NT-Pro-B Natriuret Pep 69932.0 H Albumin Albumin/Globulin Ratio Carcinoembryonic Ag 07/08/20 07/08/20 07/08/20 13:26 12:31 12:30 RBC 4.16 L Hgb 6.2 L* Hct 25.1 L MCV 60.3 L MCH 14.9 L MCHC 24.7 L RDW 24.1 H Plt Count 497 H Neut % (Auto) 81.6 H Lymph % (Auto) 11.1 L Lymph # (Auto) 1.01 L Sodium Chloride Carbon Dioxide 17 L Anion Gap 17.0 H BUN 63 H Creatinine 2.9 H Glucose 122 H Iron Transferrin % Sat Ferritin NT-Pro-B Natriuret Pep Albumin 3.1 L Albumin/Globulin Ratio 0.9 L Carcinoembryonic Ag 290.7 H Meds: Medications Acetaminophen (Tylenol) 650 mg PO Q6HP PRN; Protocol PRN Reason: Per Pain Protocol/Fever > 101 Hydrocodone Bitart/Acetaminophen ([place] 5/325mg) 1 tab PO Q6HP PRN; Protocol PRN Reason: Per Pain Protocol Ferrous Sulfate (Ferrous Sulfate) 325 mg PO [facility] Last Admin: 07/10/20 08:14 Dose: 325 mg Documented by: Sodium Chloride (Sodium Chloride 0.9%) 1,000 mls @ 100 mls/hr IV .Q10H [facility] Morphine Sulfate (Morphine) 2 mg IV Q4HP PRN; Protocol PRN Reason: Per Pain Protocol Pantoprazole Sodium (Protonix) 40 mg PO [facility] Last Admin: 07/09/20 20:57 Dose: 40 mg Documented by: Prochlorperazine (Compazine) 5 mg IV Q6HP PRN PRN Reason: Nausea And Vomiting Sodium Chloride (Saline Flush) 10 ml IV Q8 [facility] Last Admin: 07/10/20 05:48 Dose: Not Given Documented by: A/P Narrative A/P Narrative: 1. Anemia, blood loss and malignancy? Hb 6.2 in the ER, S/p 2 units of pRBCs were ordered Hb 7.7 today Ferrous sulph 325 mg daily Repeat CBC in am 2. GI bleeding 3. Colonic mass 4. Colovesicular fistula 5. Cholelithiasis GS Dr. Lind is on board. Really appreciate it. Pt may have colonoscopy and biopsy on Monday. NPO after midnight on Monday. 6. Hematuria? 7. Hydronephrosis and hydroureter, B/L Urology Dr. Fletcher is on board. Really appreciate it. 8. KETTY or KETTY on CKD, most likely due to obstructive uropathy creatinine trending down to 1.7 today Intake and output Avoid nephrotoxic meds Urology Dr. Fletcher is on board. 9. DVT prophylaxis: SCD. No pharmacological DVT Prophylaxis due to bleeding. Time Spent With Patient Time: Total time spent is greater than 50% in coordination of care (as documented) at patient's floor/unit and/or counseling patient: QUALITY VTE Deep Vein Thrombosis/Pulmonary Embolism Present on Admission: No
--- NOTE | 2020-07-10 18:13 | General Surgery Progress Note ---
SUBJECTIVE Subjective Patient information: Note initiated : 07/10/20 at 6:10 pm Service Date, if different from initiated Date: [] Patient: Shiv Gardner 80 y/o M admitted on 07/08/20 for kidney issues, anemia. Chief Complaint: S: feeling better today. 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 - for complete management stratagy please see consult note Plan for colonoscopy and biopsies Risks of bleeding, infection, perforation, missed leasion discussed Consent obtained All questions answered David Lind MD Constitutional Vitals: Vital Signs Temp Pulse Resp BP Pulse Ox 37.8 C H 99 H 18 116/60 96 07/10/20 16:00 07/10/20 16:00 07/10/20 16:00 07/10/20 16:00 07/10/20 16:00 Period Temp Pulse Resp BP Sys/Latham Pulse Ox Last 24 Hr 36.6 C-37.8 C 62-99 16-24 116-152/53-71 94-98 Intake and Output 07/10/20 07/10/20 07/10/20 05:59 13:59 21:59 Intake Total 1200 480 390 Output Total 1 1 Balance 1200 479 389 Intake & Output: Intake & Output 07/10/20 07/10/20 07/10/20 05:59 13:59 21:59 Intake Total 1200 480 390 Output Total 1 1 Balance 1200 479 389 Intake: IV 1000 390 Sodium Chloride 0.9% 1,000 ml @ 1000 390 100 mls/hr IV .Q10H [facility] Rx#: [id number] Oral 200 480 Output: # of times incontinent of urine 1 1 Other: Meal Lunch Percent of Meal Consumed 100% Stool Size Copious Large Stool Color Brown Brown Green Stool Consistency Liquid Liquid Watery Loose # Voids 1 # Bowel Movements 1 1 # of times incontinent of 1 1 Bowels A/P Time Spent With Patient Time: Total time spent is greater than 50% in coordination of care (as documented) at patient's floor/unit and/or counseling patient:
[2020-07-10] MEDS: PANTOPRAZOLE 40 MG TABLET PO SCH (20:54)
[2020-07-11] MEDS: 0.9 % SODIUM CHLORIDE 1,000 ML IV SCH ×3 (00:25→07:29)
[2020-07-11] MEDS: 0.9 % SODIUM CHLORIDE 10 ML SYRINGE IV SCH ×4 (00:26→21:55)
[2020-07-11 06:00] LABS: Basophils # (Auto) 0.03 K/mcL (0.00-0.20); Basophils % (Auto) 0.6 % (0.0-2.0); Eosinophils # (Auto) 0.03 K/mcL (0.00-0.70); Eosinophils % (Auto) 0.6 % (0.0-7.0); Hematocrit 26.6 % (41.0-55.0); Hemoglobin 7.3 g/dL (13.5-16.5); Lymphocytes # (Auto) 1.14 K/mcL (1.50-4.80); Lymphocytes % (Auto) 21.8 % (15.0-49.0); Mean Cell Volume 65.7 fL (80.0-100.0); Mean Corpuscular HGB Conc 27.4 g/dL (31.0-36.0); Mean Platelet Volume 8.7 fL (7.4-10.4); Monocytes # (Auto) 0.51 K/mcL (0.10-0.90); Monocytes % (Auto) 9.8 % (1.0-12.0); Neutrophils % (Auto) 67.2 % (38.0-78.0); Platelet Count 339 K/mcL (140-440); RBC 4.05 M/mcL (4.50-5.90); Red Cell Distribution Width 28.6 % (11.5-14.5); WBC 5.2 K/mcL (4.5-11.0)
[2020-07-11 06:37] LABS: Blood Urea Nitrogen 30 mg/dL (8-23); Calcium 8.3 mg/dL (8.6-10.4); Carbon Dioxide 16 mmol/L (22-30); Chloride 119 mmol/L (96-108); Glomerular Filtration Rate 37; Glucose 81 mg/dL (70-105)
[2020-07-11] MEDS: FERROUS SULFATE 325 MG TABLET PO SCH (07:29)
[2020-07-11] MEDS ORDERED: LACTATED RINGERS 1,000 ML IV SCH (08:15)
[2020-07-11] MEDS ORDERED: LIDOCAINE HCL/PF 100 MG/5 ML SYRINGE IV ONE (09:50)
[2020-07-11] MEDS ORDERED: PROPOFOL 200 MG/20 ML VIAL IV ONE (09:50)
[2020-07-11] MEDS ORDERED: KETAMINE 100 MG/ML ML ONE (09:50)
[2020-07-11] MEDS ORDERED: SIMETHICONE 40 MG/0.6 ML ML PO ONE (10:15)
--- NOTE | 2020-07-11 10:52 | Brief Operative Note ---
Brief Operative Note Date of procedure: 07/11/20 Pre-op diagnosis: sigmoid coancer Post-op diagnosis: same Procedure: Flexiable sigmoidoscopy Multiple biopsies of sigmoid, high rectal mass Cold biopsy of rectal polyp Grafts/Implants: No Anesthesia: MAC Findings: 1) on MARIZA large circumferential mass - densely adherent posteriorly to sacrum and L lateral side wall 2) Circumferential, necrotic, friable, fungating mass extends from ~12 cm to 25cm 3) Stricture at 20cm - does not permit passage of regular or pediatric colonoscope 4) Multiple rectal polyps - career representative sample taken Complications: none Surgeon: David Lind Estimated blood loss (cc): 10 Specimens Removed/Pathology: other (1) Sigmoid mass, 2) rectal polyp) Condition: stable Disposition: PACU
--- NOTE | 2020-07-11 11:45 | Internal Med Progress Note ---
SUBJECTIVE Subjective Patient information: Note initiated : 07/11/20 at 11:40 am Service Date, if different from initiated Date: [] Patient: Shiv Gardner 80 y/o M admitted on 07/08/20 for kidney issues, anemia. Chief Complaint: [] Mr. 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 As per patient, patient has been having pain with urination, urinary frequency and blood in urine over the past 3 days. In the ER, he was found to have anemia, hemoglobin 6.2. 2 units of PRBC were ordered. 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 Otherwise patient denies headache, dizziness, chest pain, shortness of breath, abdominal pain, nausea, or vomiting. 07/09 The patient does not have any complaints. Hemoglobin 7.4 today. He received 2 units of PRBCs yesterday. He will probably have colonoscopy biopsy on Monday Monitor creatinine 07/10 When I saw this patient this morning, he was sleeping. He does not have any complaints. He has a tachycardia and tachypnea at times -increased IV fluid to 100 cc/h RN study compatible with iron deficiency -iron supplement 07/11 Patient feels weak. Otherwise that she does not have any complaints. Flexiable sigmoidoscopy by Dr. Lind on 07/11/20 Respiration rate 24, heart rate 98, temperature 99.3 Hemoglobin 7.3, sodium of 147 - lR Potassium 3.[address] Lind and Dr. Rich are on board Review of Systems Review of systems: Positive for hematuria and GI bleeding. All other systems were reviewed and are negative. Constitutional Vitals: Vital Signs Temp Pulse Resp BP Pulse Ox 98.7 F 70 20 113/54 100 07/11/20 06:58 07/11/20 10:40 07/11/20 10:40 07/11/20 10:40 07/11/20 10:40 Period Temp Pulse Resp BP Sys/Latham Pulse Ox Last 24 Hr 98.3 F-100.1 F 70-103 16-24 113-152/54-69 94-100 Intake and Output 07/10/20 07/11/20 07/11/20 21:59 05:59 13:59 Intake Total 390 1000 Output Total 1 Balance 389 1000 Weight 72.717 kg Intake & Output: Intake & Output 07/10/20 07/11/20 07/11/20 21:59 05:59 13:59 Intake Total 390 1000 Output Total 1 Balance 389 1000 Weight 72.717 kg Intake: IV 390 1000 Sodium Chloride 0.9% 1,000 ml @ 390 1000 100 mls/hr IV .Q10H [facility] Rx#: [id number] Output: # of times incontinent of urine 1 Other: Stool Size Large Small Copious Stool Color Brown Brown Green Stool Consistency Liquid Liquid Liquid Watery Watery Loose Loose # Voids 1 # Bowel Movements 1 1 # of times incontinent of 1 1 1 Bowels Additional findings Additional findings: General: Cachectic, no acute distress Eye: EMOI, no conjunctival injection. HEENT: supple, no JVD or thyroid megaly Chest: No tenderness Heart: RRR, no gallop Lungs: Rhonchi bilateral Abdomen: Normal bowel sounds, soft, no tenderness Extremities: edema + in both legs, no cyanosis or clubbing Neurology: A+O x 3, no focal neurological deficits Psych: Normal mood OBJ DATA Labs CBC & Chem 7: 07/11/20 05:11 07/11/20 05:11 Labs: Abnormal Lab Results 07/11/20 07/11/20 07/10/20 05:11 05:11 05:50 RBC 4.05 L Hgb 7.3 L Hct 26.6 L MCV 65.7 L MCH 18.0 L MCHC 27.4 L RDW 28.6 H Plt Count Neut % (Auto) Lymph % (Auto) Lymph # (Auto) 1.14 L Sodium 147 H 148 H Chloride 119 H 118 H Carbon Dioxide 16 L 16 L Anion Gap BUN 30 H 37 H Creatinine 1.7 H 1.7 H Glucose Calcium 8.3 L Iron Transferrin % Sat Ferritin NT-Pro-B Natriuret Pep Albumin Albumin/Globulin Ratio Carcinoembryonic Ag 07/10/20 07/09/20 07/09/20 05:50 05:16 05:16 RBC 4.29 L 4.21 L Hgb 7.7 L 7.4 L Hct 29.2 L 27.8 L MCV 68.1 L 66.0 L MCH 17.9 L 17.6 L MCHC 26.4 L 26.6 L RDW 28.6 H 28.4 H Plt Count Neut % (Auto) Lymph % (Auto) 13.6 L Lymph # (Auto) 1.38 L 0.91 L Sodium Chloride Carbon Dioxide Anion Gap BUN Creatinine Glucose Calcium Iron 20 L Transferrin % Sat 9 L Ferritin 24.1 L NT-Pro-B Natriuret Pep 29586.0 H Albumin Albumin/Globulin Ratio Carcinoembryonic Ag 07/08/20 07/08/20 07/08/20 22:04 22:04 13:26 RBC Hgb 7.3 L Hct 26.2 L MCV MCH MCHC RDW Plt Count Neut % (Auto) Lymph % (Auto) Lymph # (Auto) Sodium Chloride Carbon Dioxide Anion Gap BUN Creatinine 2.3 H Glucose Calcium Iron Transferrin % Sat Ferritin NT-Pro-B Natriuret Pep Albumin Albumin/Globulin Ratio Carcinoembryonic Ag 290.7 H 07/08/20 07/08/20 12:31 12:30 RBC 4.16 L Hgb 6.2 L* Hct 25.1 L MCV 60.3 L MCH 14.9 L MCHC 24.7 L RDW 24.1 H Plt Count 497 H Neut % (Auto) 81.6 H Lymph % (Auto) 11.1 L Lymph # (Auto) 1.01 L Sodium Chloride Carbon Dioxide 17 L Anion Gap 17.0 H BUN 63 H Creatinine 2.9 H Glucose 122 H Calcium Iron Transferrin % Sat Ferritin NT-Pro-B Natriuret Pep Albumin 3.1 L Albumin/Globulin Ratio 0.9 L Carcinoembryonic Ag Meds: Medications Acetaminophen (Tylenol) 650 mg PO Q6HP PRN; Protocol PRN Reason: Per Pain Protocol/Fever > 101 Hydrocodone Bitart/Acetaminophen ([place] 5/325mg) 1 tab PO Q6HP PRN; Protocol PRN Reason: Per Pain Protocol Ferrous Sulfate (Ferrous Sulfate) 325 mg PO [facility] Last Admin: 07/11/20 07:29 Dose: Not Given Documented by: Lactated Ringer's (Lactated Ringers) 1,000 mls @ 75 mls/hr IV .[id number] [facility] Last Admin: 07/11/20 08:28 Dose: 75 mls/hr Documented by: Morphine Sulfate (Morphine) 2 mg IV Q4HP PRN; Protocol PRN Reason: Per Pain Protocol Pantoprazole Sodium (Protonix) 40 mg PO HS [facility] Last Admin: 07/10/20 20:54 Dose: 40 mg Documented by: Prochlorperazine (Compazine) 5 mg IV Q6HP PRN PRN Reason: Nausea And Vomiting Sodium Chloride (Saline Flush) 10 ml IV Q8 [facility] Last Admin: 07/11/20 05:02 Dose: Not Given Documented by: A/P Narrative A/P Narrative: 1. Anemia, blood loss and malignancy? Hb 6.2 in the ER, S/p 2 units of pRBCs were ordered Hb 7.73 today Ferrous sulph 325 mg daily Repeat CBC in am 2. GI bleeding 3. Colonic mass 4. Colovesicular fistula 5. Cholelithiasis Flexiable sigmoidoscopy by Dr. Lind on 07/11/20 Dr. Lind is on board. Really appreciate it. 6. Hematuria? 7. Hydronephrosis and hydroureter, B/L Urology Dr. Fletcher is on board. Really appreciate it. 8. KETTY or KETTY on CKD, most likely due to obstructive uropathy creatinine trending down to 1.7 today Intake and output Avoid nephrotoxic meds Urology Dr. Fletcher is on board. 9. DVT prophylaxis: SCD. No pharmacological DVT Prophylaxis due to bleeding. Time Spent With Patient Time: Total time spent is greater than 50% in coordination of care (as documented) at patient's floor/unit and/or counseling patient: QUALITY VTE Deep Vein Thrombosis/Pulmonary Embolism Present on Admission: No
[2020-07-11] MEDS: DEXTROSE 5%-LR W/20MEQ KCL 1,000 ML IV SCH (12:32)
--- NOTE | 2020-07-11 13:45 | General Surgery Progress Note ---
SUBJECTIVE Subjective Patient information: Note initiated : 07/11/20 at 1:41 pm Service Date, if different from initiated Date: [] Patient: Shiv Gardner 80 y/o M admitted on 07/08/20 for kidney issues, anemia. Chief Complaint: [] S: clinically non obstructed - passed prep for colonoscopy without incident, feeling resonably well, no abdominal pain O: VSS Breathing easily RRR Abd soft nontender nondistended Periphery warm A/P 80 yo man with colovesciular fistula s/p colonoscopy today - demonstrated nonmobile mass densely adherent to pelvic side wall and likely sacrum. Unable to pass scope beyond large necrotic mass, biopsies obtained Plan: OK for diet Discussed with Rads - plan for MR abd to eval for liver mets and pelvis to asses associated structure involevment GFR 38. OK for gado. 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 David Lind MD Constitutional Vitals: Vital Signs Temp Pulse Resp BP Pulse Ox 35.9 C L 95 H 16 144/70 97 07/11/20 10:51 07/11/20 11:21 07/11/20 10:51 07/11/20 11:21 07/11/20 11:21 Period Temp Pulse Resp BP Sys/Latham Pulse Ox Last 24 Hr 35.9 C-37.8 C 65-103 16-24 113-144/54-70 94-100 Intake and Output 07/10/20 07/11/20 07/11/20 21:59 05:59 13:59 Intake Total 390 1000 Output Total 1 Balance 389 1000 Weight 72.717 kg Intake & Output: Intake & Output 07/10/20 07/11/20 07/11/20 21:59 05:59 13:59 Intake Total 390 1000 Output Total 1 Balance 389 1000 Weight 72.717 kg Intake: IV 390 1000 Sodium Chloride 0.9% 1,000 ml @ 390 1000 100 mls/hr IV .Q10H [facility] Rx#: [id number] Output: # of times incontinent of urine 1 Other: Stool Size Large Small Copious Stool Color Brown Brown Green Stool Consistency Liquid Liquid Liquid Watery Watery Loose Loose # Voids 1 # Bowel Movements 1 1 # of times incontinent of 1 1 1 Bowels A/P Time Spent With Patient Time: Total time spent is greater than 50% in coordination of care (as documented) at patient's floor/unit and/or counseling patient:
[2020-07-11] MEDS ORDERED: GADOBENATE DIMEGLUMINE 15 ML/VIAL IV ONE (17:37)
[2020-07-11] MEDS: PANTOPRAZOLE 40 MG TABLET PO SCH (21:55)
[2020-07-12] MEDS: DEXTROSE 5%-LR W/20MEQ KCL 1,000 ML IV SCH ×3 (00:35→16:14)
[2020-07-12] MEDS: 0.9 % SODIUM CHLORIDE 10 ML SYRINGE IV SCH ×3 (05:51→22:24)
--- NOTE | 2020-07-12 06:45 | Magnetic Resonance Report ---
CLINICAL INFORMATION: Left sigmoid colon mass presumably adenocarcinoma. 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 Staging COMPARISON: Abdomen and pelvic CT 07/08/2020. TECHNIQUE: Axial T2 SSFSE lava pre- and postdynamic coronal post lava T1-T2 images were acquired. FINDINGS: Patient was unable to suspend respiration which mildly compromises the image quality. Small left and tiny right pleural effusions appreciated. Visualized heart is normal There is a 3 mm simple cyst in the posterior segment of the right hepatic lobe. The liver is, otherwise, normal - no metastases evident. Seven - eight stones within the gallbladder ranging up to 11 mm. The gallbladder is, otherwise, normal - no evidence of cholecystitis. Intrahepatic and common bile ducts are normal caliber: CBD is 5 mm. Both adrenal glands, spleen, pancreas are normal. 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 The prairie band aorta, 7 cm diameter, is thrombosed around the stent - as expected. No evidence of periaortic hemorrhage. Pelvic images show a 7 x 6 cm mass arising from, and encasing, the sigmoid colon resulting in subtotal colonic obstruction. The mass has invaded the left posterior wall of the urinary bladder creating a colorectal fistula. (The fistula was better demonstrated on recent abdomen pelvic CT). The mass also encases and narrows the left internal iliac artery and partially encases the stented left common iliac artery. It extends to, but does not appear to invade, the anterior cortex of the left S1-S2 vertebral bodies - the marrow signal appears normal in this region.. The distal left ureter is completely encased by this mass resulting in ureteral obstruction with subsequent moderate left hydroureter/hydronephrosis. Mild atrophy of the left kidney appreciated. The right kidney is normal in size. There is equivocal pyelocaliectasis and prominence of ureter. No evidence of right ureteral obstruction by the mass or other cause. Prostate is normal size 4.3 x 3.5 cm. There is only mild thickening of the urinary bladder wall. Mild presacral edema is appreciated. There is no free fluid. The remainder of the visualized colon and the small bowel are normal. IMPRESSION: 1. 7 cm mass arising from the mid sigmoid colon. It encases the colon resulting in partial colonic obstruction. It is invaded the left lateral wall the urinary bladder resulting in a colovesical fistula. It also encases and narrows the left internal iliac artery and partially encases the left common iliac artery. It extends to, but does not appear to frankly invade, the left S1-S2 vertebral bodies. No adenopathy or distant metastasis appreciated. The liver is unremarkable. 2. Encasement of the distal left ureter by the mass resulting in ureteral obstruction and moderate hydroureter/hydronephrosis. Left kidney is mildly atrophic with compensatory hypertrophy of the right kidney. 3. Mild right pyelocaliectasis but no evidence of jair right ureteral obstruction. 4. Cholelithiasis. 5. Aortobiiliac endovascular graft in stable, satisfactory position. The prairie band aortic aneurysm spans 6.8 cm and is thrombosed around the graft - as expected. 6. Small left and tiny right pleural effusion Interpreted and Authenticated by: Nathaniel Xie 07/12/20
[2020-07-12 07:13] LABS: Basophils # (Auto) 0.03 K/mcL (0.00-0.20); Basophils % (Auto) 0.5 % (0.0-2.0); Eosinophils # (Auto) 0.14 K/mcL (0.00-0.70); Eosinophils % (Auto) 2.3 % (0.0-7.0); Hematocrit 29.2 % (41.0-55.0); Hemoglobin 7.8 g/dL (13.5-16.5); Lymphocytes # (Auto) 1.22 K/mcL (1.50-4.80); Lymphocytes % (Auto) 19.6 % (15.0-49.0); Mean Cell Volume 66.5 fL (80.0-100.0); Mean Corpuscular HGB Conc 26.7 g/dL (31.0-36.0); Mean Platelet Volume 8.6 fL (7.4-10.4); Monocytes # (Auto) 0.53 K/mcL (0.10-0.90); Monocytes % (Auto) 8.5 % (1.0-12.0); Neutrophils % (Auto) 69.1 % (38.0-78.0); Platelet Count 309 K/mcL (140-440); RBC 4.39 M/mcL (4.50-5.90); Red Cell Distribution Width 28.7 % (11.5-14.5); WBC 6.2 K/mcL (4.5-11.0)
[2020-07-12 07:49] LABS: ALT/SGPT 7 U/L (<40); AST/SGOT 13 U/L (<40); Albumin 2.3 gm/dL (3.2-5.2); Albumin/Globulin Ratio 0.7 (1.0-2.3); Alkaline Phosphatase 53 U/L (39-117); Bilirubin,Total 0.4 mg/dL (0.1-1.0); Blood Urea Nitrogen 24 mg/dL (8-23); Calcium 8.4 mg/dL (8.6-10.4); Carbon Dioxide 17 mmol/L (22-30); Chloride 113 mmol/L (96-108); Globulin 3.1 gm/dL (2.2-3.7); Glomerular Filtration Rate 40; Glucose 109 mg/dL (70-105)
[2020-07-12] MEDS: FERROUS SULFATE 325 MG TABLET PO SCH (08:11)
--- NOTE | 2020-07-12 13:35 | General Surgery Progress Note ---
SUBJECTIVE Subjective Patient information: Note initiated : 07/12/20 at 1:20 pm Service Date, if different from initiated Date: [] Patient: Shiv Gardner 80 y/o M admitted on 07/08/20 for kidney issues, anemia. 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 Unable to pass scope beyond large necrotic mass, biopsies obtained. Taken together, the immobility on exam, the involvement of the iliac vessels and likely sacrum on imaging - and age. This is an unresectable tumor. 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 Alternatives are nephrostomy tube, vs nothing in setting of hospice. She will see pt in the next 24hrs Pt at this point strongly wants to discharge home in near future. He understands he is dying and wants to leave hospital as soon as is safe to do so. Plan: OK for diet, NPO at [place] pending urology decision Referral to hospice - i put in care coordination order Referral to [facility] for evaluation by Dr Mathews as output (needs to be done at discharge) Phenazopyridine for dysuria discomfort Likely to discharge on Hospice Mon or I spoke with pts Daughter about above status/decisions. David Lind MD Surgery Constitutional Vitals: Vital Signs Temp Pulse Resp BP Pulse Ox 36.8 C 62 14 122/60 94 07/12/20 11:59 07/12/20 11:59 07/12/20 11:59 07/12/20 11:59 07/12/20 11:59 Period Temp Pulse Resp BP Sys/Latham Pulse Ox Last 24 Hr 36.2 C-37.0 C 61-68 14-20 122-146/57-72 93-100 Intake and Output 07/11/20 07/12/20 07/12/20 21:59 05:59 13:59 Intake Total 0 1504 240 Output Total 2 1 Balance 0 1502 239 Weight 73.028 kg Intake & Output: Intake & Output 07/11/20 07/12/20 07/12/20 21:59 05:59 13:59 Intake Total 0 1504 240 Output Total 2 1 Balance 0 1502 239 Weight 73.028 kg Intake: IV 904 Dextrose 5%-Lr W/20Meq KCl 1, 904 000 ml @ 75 mls/hr IV .[id number] [facility] Rx#:[id number] Oral 0 600 240 Output: # of times incontinent of urine 2 1 Other: Meal Breakfast Percent of Meal Consumed 75% Feeding Ability Assist with Tray Set Up Urine Appearance Sediment Urine Color Brown Urine Odor Fecal Stool Size Copious Stool Color Yellow Yellow Stool Consistency Liquid Liquid # Voids 1 # Bowel Movements 1 # of times incontinent of 1 1 Bowels A/P Time Spent With Patient Time: Total time spent is greater than 50% in coordination of care (as documented) at patient's floor/unit and/or counseling patient:
--- NOTE | 2020-07-12 17:01 | Internal Med Progress Note ---
SUBJECTIVE Subjective Patient information: Note initiated : 07/12/20 at 5:01 pm Service Date, if different from initiated Date: [] Patient: Shiv Gardner a 80 y/o M admitted on 07/08/20 for kidney issues, anemia. Chief Complaint: [] Mr. 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 As per patient, patient has been having pain with urination, urinary frequency and blood in urine over the past 3 days. In the ER, he was found to have anemia, hemoglobin 6.2. 2 units of PRBC were ordered. 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 Otherwise patient denies headache, dizziness, chest pain, shortness of breath, abdominal pain, nausea, or vomiting. 07/09 The patient does not have any complaints. Hemoglobin 7.4 today. He received 2 units of PRBCs yesterday. He will probably have colonoscopy biopsy on Monday Monitor creatinine 07/10 When I saw this patient this morning, he was sleeping. He does not have any complaints. He has a tachycardia and tachypnea at times -increased IV fluid to 100 cc/h RN study compatible with iron deficiency -iron supplement 07/11 Patient feels weak. Otherwise that she does not have any complaints. Flexiable sigmoidoscopy by Dr. Lind on 07/11/20 Respiration rate 24, heart rate 98, temperature 99.3 Hemoglobin 7.3, sodium of 147 - lR Potassium 3.[address] Lind and Dr. Rich are on board 07/12 Patient does not have any new complaints. He looks very weak and tired. Hemoglobin 7.8 Creatinine [address] Lind, he is a candidate for hospice care Would really appreciate further input from Dr. Fletcher Review of Systems Review of systems: Positive for hematuria and GI bleeding. All other systems were reviewed and are negative. Constitutional Vitals: Vital Signs Temp Pulse Resp BP Pulse Ox 98 F 74 16 128/64 94 07/12/20 16:00 07/12/20 16:00 07/12/20 16:00 07/12/20 16:00 07/12/20 16:00 Period Temp Pulse Resp BP Sys/Latham Pulse Ox Last 24 Hr 97.2 F-98.6 F 61-74 14-20 122-146/57-72 93-100 Intake and Output 07/12/20 07/12/20 07/12/20 05:59 13:59 21:59 Intake Total 1504 1240 400 Output Total 2 1 1 Balance 1502 1239 399 Intake & Output: Intake & Output 07/12/20 07/12/20 07/12/20 05:59 13:59 21:59 Intake Total 1504 1240 400 Output Total 2 1 1 Balance 1502 1239 399 Intake: IV 904 1000 Dextrose 5%-Lr W/20Meq KCl 1, 904 1000 000 ml @ 75 mls/hr IV .[id number] JUAN C Rx#:[id number] Oral 600 240 400 Output: # of times incontinent of urine 2 1 1 Other: Meal Breakfast Lunch Percent of Meal Consumed 75% 100% Feeding Ability Assist with Tray Set Up Urine Appearance Sediment Sediment Urine Color Brown Brown Urine Odor Fecal Fecal Stool Size Copious Copious Stool Color Yellow Yellow Brown Yellow Blood Tinged Stool Consistency Liquid Liquid Liquid # Voids 1 1 # Bowel Movements 1 1 # of times incontinent of 1 1 1 Bowels Additional findings Additional findings: General: Cachectic, no acute distress Eye: EMOI, no conjunctival injection. HEENT: supple, no JVD or thyroid megaly Chest: No tenderness Heart: RRR, no gallop Lungs: Rhonchi bilateral Abdomen: Normal bowel sounds, soft, no tenderness Extremities: edema + in both legs, no cyanosis or clubbing Neurology: A+O x 3, no focal neurological deficits Psych: Normal mood OBJ DATA Labs CBC & Chem 7: 07/12/20 06:17 07/12/20 06:17 Labs: Abnormal Lab Results 07/12/20 07/12/20 07/11/20 06:17 06:17 05:11 RBC 4.39 L Hgb 7.8 L Hct 29.2 L MCV 66.5 L MCH 17.8 L MCHC 26.7 L RDW 28.7 H Lymph # (Auto) 1.22 L Sodium 147 H Chloride 113 H 119 H Carbon Dioxide 17 L 16 L BUN 24 H 30 H Creatinine 1.6 H 1.7 H Glucose 109 H Calcium 8.4 L 8.3 L Total Protein 5.4 L Albumin 2.3 L Albumin/Globulin Ratio 0.7 L 07/11/20 07/10/20 07/10/20 05:11 05:50 05:50 RBC 4.05 L 4.29 L Hgb 7.3 L 7.7 L Hct 26.6 L 29.2 L MCV 65.7 L 68.1 L MCH 18.0 L 17.9 L MCHC 27.4 L 26.4 L RDW 28.6 H 28.6 H Lymph # (Auto) 1.14 L 1.38 L Sodium 148 H Chloride 118 H Carbon Dioxide 16 L BUN 37 H Creatinine 1.7 H Glucose Calcium Total Protein Albumin Albumin/Globulin Ratio Meds: Medications Acetaminophen (Tylenol) 650 mg PO Q6HP PRN; Protocol PRN Reason: Per Pain Protocol/Fever > 101 Hydrocodone Bitart/Acetaminophen ([place] 5/325mg) 1 tab PO Q6HP PRN; Protocol PRN Reason: Per Pain Protocol Ferrous Sulfate (Ferrous Sulfate) 325 mg PO [facility] Last Admin: 07/12/20 08:11 Dose: 325 mg Documented by: Potassium Cl/Dextrose/Lact Ringer's (Dextrose 5%-Lr W/20meq Kcl) 1,000 mls @ 75 mls/hr IV .[id number] [facility] Last Admin: 07/12/20 16:14 Dose: 75 mls/hr Documented by: Morphine Sulfate (Morphine) 2 mg IV Q4HP PRN; Protocol PRN Reason: Per Pain Protocol Pantoprazole Sodium (Protonix) 40 mg PO [facility] Last Admin: 07/11/20 21:55 Dose: 40 mg Documented by: Phenazopyridine HCl (Pyridium) 100 mg PO Q12H [facility] Prochlorperazine (Compazine) 5 mg IV Q6HP PRN PRN Reason: Nausea And Vomiting Sodium Chloride (Saline Flush) 10 ml IV Q8 [facility] Last Admin: 07/12/20 13:53 Dose: Not Given Documented by: A/P Narrative A/P Narrative: 1. Anemia, blood loss and malignancy? Hb 6.2 in the ER, S/p 2 units of pRBCs were ordered Hb > 7.0, stable Ferrous sulph 325 mg daily Repeat CBC in am 2. GI bleeding 3. Colonic mass 4. Colovesicular fistula 5. Cholelithiasis Flexiable sigmoidoscopy by Dr. Lind on 07/11/20. Biopsy pending GS Dr. Lind is on board. Really appreciate it. As per Dr. Lind, he is a candidate for hospice care. 6. Hematuria? 7. Hydronephrosis and hydroureter, B/L 8. KETTY or KETTY on CKD, most likely due to obstructive uropathy Urology Dr. Fletcher is on board. Would really appreciate for further input. 9. DVT prophylaxis: SCD. No pharmacological DVT Prophylaxis due to bleeding. Deposition: As per Dr. Lind, referral to hospice Referral to [facility] for evaluation by Dr Mathews as output (needs to be done at discharge) Time Spent With Patient Time: Total time spent is greater than 50% in coordination of care (as documented) at patient's floor/unit and/or counseling patient: QUALITY VTE Deep Vein Thrombosis/Pulmonary Embolism Present on Admission: No
[2020-07-12] MEDS: PHENAZOPYRIDINE 200 MG TABLET PO SCH (19:07)
[2020-07-12] MEDS: PANTOPRAZOLE 40 MG TABLET PO SCH (19:07)
[2020-07-12] MEDS: HYDROcodone/APAP 5/325MG TABLET PO PRN (19:07)
[2020-07-13] MEDS: HYDROcodone/APAP 5/325MG TABLET PO PRN (03:48)
[2020-07-13] MEDS: DEXTROSE 5%-LR W/20MEQ KCL 1,000 ML IV SCH (03:49)
[2020-07-13] MEDS: 0.9 % SODIUM CHLORIDE 10 ML SYRINGE IV SCH ×2 (05:35→14:01)
[2020-07-13 06:54] LABS: Basophils # (Auto) 0.04 K/mcL (0.00-0.20); Basophils % (Auto) 0.5 % (0.0-2.0); Eosinophils % (Auto) 2.7 % (0.0-7.0); Hematocrit 27.1 % (41.0-55.0); Hemoglobin 7.1 g/dL (13.5-16.5); Lymphocytes # (Auto) 1.17 K/mcL (1.50-4.80); Mean Cell Volume 67.2 fL (80.0-100.0); Mean Corpuscular HGB Conc 26.2 g/dL (31.0-36.0); Mean Platelet Volume 8.9 fL (7.4-10.4); Monocytes # (Auto) 0.67 K/mcL (0.10-0.90); Monocytes % (Auto) 9.2 % (1.0-12.0); Neutrophils % (Auto) 71.6 % (38.0-78.0); Platelet Count 283 K/mcL (140-440); RBC 4.03 M/mcL (4.50-5.90); Red Cell Distribution Width 28.5 % (11.5-14.5); WBC 7.3 K/mcL (4.5-11.0)
[2020-07-13 07:03] LABS: ALT/SGPT 6 U/L (<40); AST/SGOT 13 U/L (<40); Albumin 2.1 gm/dL (3.2-5.2); Albumin/Globulin Ratio 0.7 (1.0-2.3); Alkaline Phosphatase 47 U/L (39-117); Bilirubin,Total 0.3 mg/dL (0.1-1.0); Blood Urea Nitrogen 22 mg/dL (8-23); Calcium 8.2 mg/dL (8.6-10.4); Carbon Dioxide 18 mmol/L (22-30); Chloride 116 mmol/L (96-108); Glomerular Filtration Rate 35; Glucose 102 mg/dL (70-105)
[2020-07-13] MEDS ORDERED: 0.9 % SODIUM CHLORIDE 250 ML IV SCH (08:45)
--- NOTE | 2020-07-13 10:45 | Operative Note ---
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 PROCEDURE: 1. Flexible sigmoidoscopy/incomplete colonoscopy with multiple biopsies of the sigmoid and high rectum. 2. Cold biopsy of a rectal polyp. SURGEON: David Lind MD DIRECTOR OF OPTIMIZATION: None. INDICATIONS: This is a 80-year-old man who presented to the hospital with failure to thrive, significant weight loss and blood in his stool. He was found to have a very large pelvic mass with involvement of the bladder, sigmoid colon and likely retroperitoneal vascular structures and sacrum. His CEA was markedly elevated. He was taken to the operating room for endoscopy for tissue diagnosis. FINDINGS: 1. On digital rectal exam, a large circumferential mass identified at the most superior aspect of my ability to feel. This was densely adherent posteriorly to the sacrum and the left lateral sidewall. 2. There was a circumferential necrotic friable and fungating mass extending from 12 cm to 25 cm endoscopically. There was a stricture at 20 cm that did not permit the passage of either a regular or pediatric colonoscope. 3. There were multiple rectal polyps and a installation service representative sample was taken. DESCRIPTION OF PROCEDURE: The patient was brought to the operating room. He was sedated without incident. A timeout was completed. Digital rectal exam was performed. Taking advantage of the patient's deep sedation, I was quite thorough and was able to insert my finger deeply into the rectum. I could feel a hard circumferential mass near the limit of my finger and with deep palpation was able to assess the amount of mobility of this mass. It was essentially nonmobile and appeared to be contiguous with the posterior portion of the pelvis and likely densely adherent to the sacrum. In addition, it was nonmobile on the left lateral sidewall. At this point, a 160 cm colonoscope was introduced through the anus and passed up through the rectum and quite quickly identified a circumferential necrotic mass. Multiple installation service representative biopsies were obtained from this area. There were several areas where there was dark to black tissue consistent with necrosis. I very carefully passed the scope through the tight stricture, but was unable to pass beyond 20 cm due to the circumferential narrowing. The scope was then slowly removed. There were several rectal polyps identified. These were small sessile and a installation service representative sample was obtained via cold biopsy forceps. I then switched the scope to a pediatric scope and again advanced this through part of the mass, but again was unable to get it to pass at the stricture at 20 cm. Due to the friability concern for bleeding, further attempts to evaluate the more proximal colon were abandoned. The scope was withdrawn. The patient was awakened without incident. ESTIMATED BLOOD LOSS: Approximately 10 mL. COMPLICATIONS: None. IMPLANTS: None. SPECIMENS: 1. Multiple biopsies of sigmoid mass. 2. Rectal polyp. [email or web address] Job ID: [id number] Doc ID: [id number] David Lind
[2020-07-13] MEDS: PHENAZOPYRIDINE 200 MG TABLET PO SCH (11:36)
[2020-07-13] MEDS: FERROUS SULFATE 325 MG TABLET PO SCH (11:36)
--- NOTE | 2020-07-13 13:50 | General Surgery Progress Note ---
SUBJECTIVE Subjective Patient information: Note initiated : 07/13/20 at 1:49 pm Service Date, if different from initiated Date: [] Patient: Shiv Gardner 80 y/o M admitted on 07/08/20 for kidney issues, anemia. Chief Complaint: [] Brief progress note Pt feeling comfortable with decision for home hospice Eager to leave hosptial abd continues to be soft and nontender David Lind MD Surgery Constitutional Vitals: Vital Signs Temp Pulse Resp BP Pulse Ox 36.9 C 85 20 118/56 95 07/13/20 12:52 07/13/20 12:52 07/13/20 12:52 07/13/20 12:52 07/13/20 12:52 Period Temp Pulse Resp BP Sys/Latham Pulse Ox Last 24 Hr 36.4 C-37.1 C 74-88 14- 111-131/56-88 93-95 Intake and Output 07/12/20 07/13/20 07/13/20 21:59 05:59 13:59 Intake Total 400 1294 480 Output Total 1 2 1 Balance 399 1292 479 Weight 73.936 kg 73.936 kg Patient Weight 07/14/20 05:59 Weight 73.936 kg Intake & Output: Intake & Output 07/12/20 07/13/20 07/13/20 21:59 05:59 13:59 Intake Total 400 1294 480 Output Total 1 2 1 Balance 399 1292 479 Weight 73.936 kg 73.936 kg Intake: IV 869 Dextrose 5%-Lr W/20Meq KCl 1, 869 000 ml @ 75 mls/hr IV .[id number] [facility] Rx#:[id number] Oral 400 425 480 Output: # of times incontinent of urine 1 2 1 Other: Meal Lunch Lunch Percent of Meal Consumed 100% 100% Feeding Ability Independent Urine Appearance Sediment Urine Color Brown Urine Odor Fecal Stool Size Copious Stool Color Brown Yellow Blood Tinged Stool Consistency Liquid # Voids 1 # Bowel Movements 1 1 # of times incontinent of 1 1 Bowels A/P Time Spent With Patient Time: Total time spent is greater than 50% in coordination of care (as documented) at patient's floor/unit and/or counseling patient:
--- NOTE | 2020-07-13 13:53 | Discharge Summary ---
Discharge Provider Provider Patient information: Note initiated : 07/13/20 at 1:42 pm Service Date, if different from initiated Date: [] Patient: Shiv Gardner 80 y/o M admitted on 07/08/20 for kidney issues, anemia. Chief Complaint: [] Date of admission: 07/08/20 17:25 Discharge date: 07/13/20 Primary care physician: Chloe Umanzor Consults: 07/08/20 Consult to Physician [CONS] Stat Comment: Consulting Provider: Antione Fletcher Reason For Exam: Physician to Consult Consult to Physician [CONS] Stat Comment: Consulting Provider: Florina Grossman Reason For Exam: Physician to Consult Consult to Physician [CONS] Stat Comment: Consulting Provider: David Lind Reason For Exam: Physician to Consult Consult to Physician [CONS] Stat Comment: Consulting Provider: David Lind Reason For Exam: Physician to Consult 07/08/20 16:22 Consult to Physician [CONS] Routine Comment: Consulting Provider: Antione Fletcher Reason For Exam: Physician to Consult Discharge Meds Discharge Medications Home Medications ferrous sulfate 325 mg PO QAMCC #30 tab 07/13/20 [Rx Last Taken Unknown] morphine 10 mg PO Q12HP PRN #6 cap 07/13/20 [Rx Last Taken Unknown] pantoprazole 40 mg PO HS #30 tab 07/13/20 [Rx Last Taken Unknown] COURSE Hospital Course Hospital course: Mr. 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 As per patient, patient has been having pain with urination, urinary frequency and blood in urine over the past 3 days. In the ER, he was found to have anemia, hemoglobin 6.2. 2 units of PRBC were ordered. 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 Otherwise patient denies headache, dizziness, chest pain, shortness of breath, abdominal pain, nausea, or vomiting. 1. Anemia, blood loss and malignancy? Hb 6.2 in the ER, S/p 2 units of pRBCs was given in the ER Today Hb 7.1. I will order 2 units of pRBCs for him. Ferrous sulph 325 mg daily 2. GI bleeding 3. Colonic mass 4. Colovesicular fistula 5. Cholelithiasis Flexiable sigmoidoscopy by Dr. Lind on 07/11/20. Biopsy pending As per Dr. Lind, he is a candidate for hospice care. 6. Hematuria? 7. Hydronephrosis and hydroureter, B/L 8. KETTY or KETTY on CKD, most likely due to obstructive uropathy Urology Dr. Fletcher is on board. Dr. Fletcher will not do any procedure for him at this moment. 9. DVT prophylaxis: SCD. No pharmacological DVT Prophylaxis due to bleeding. interval history: 07/09 The patient does not have any complaints. Hemoglobin 7.4 today. He received 2 units of PRBCs yesterday. He will probably have colonoscopy biopsy on Monday Monitor creatinine 07/10 When I saw this patient this morning, he was sleeping. He does not have any complaints. He has a tachycardia and tachypnea at times -increased IV fluid to 100 cc/h RN study compatible with iron deficiency -iron supplement 07/11 Patient feels weak. Otherwise that she does not have any complaints. Flexiable sigmoidoscopy by Dr. Lind on 07/11/20 Respiration rate 24, heart rate 98, temperature 99.3 Hemoglobin 7.3, sodium of 147 - lR Potassium 3.[address] Lind and Dr. Rich are on board 07/12 Patient does not have any new complaints. He looks very weak and tired. Hemoglobin 7.8 Creatinine [address] Lind, he is a candidate for hospice care Would really appreciate further input from Dr. Fletcher 07/13 Pt does not have new complaints. His Hb 7.1. Initially he refused blood transfusion. He agreed with the transfusion after explanation. He refused chemotherapy. Dr. Fletcher will not do any procedure at this moment. As per Dr. Lind, he will be discharged to home hospice today. He needs to f/u with pcp nicholas and hospice team. he will be referred to [facility] for evaluation by Dr Mathews as output. Repeat CBC and CMP in 3 days. Call pcp and hospice team for medical issues. Discharge diagnosis: GI bleeding, Colonic mass Time Spent with Patient Time attestation: Total time spent providing and/or coordinating discharge services: EXAM Constitutional Vitals: Temp Pulse Resp BP Pulse Ox 98.4 F 85 20 118/56 95 07/13/20 12:52 07/13/20 12:52 07/13/20 12:52 07/13/20 12:52 07/13/20 12:52 Additional findings Additional findings: General: Cachectic, no acute distress Eye: EMOI, no conjunctival injection. HEENT: supple, no JVD or thyroid megaly Chest: No tenderness Heart: RRR, no gallop Lungs: Rhonchi bilateral Abdomen: Normal bowel sounds, soft, no tenderness Extremities: edema + in both legs, no cyanosis or clubbing Neurology: A+O x 3, no focal neurological deficits Psych: Normal mood Discharge Data Data Completed and Pending Labs on day of discharge: Labs from last 24 hours 07/13/20 07/13/20 05:14 05:00 WBC 7.3 RBC 4.03 L Hgb 7.1 L Hct 27.1 L MCV 67.2 L MCH 17.6 L MCHC 26.2 L RDW 28.5 H Plt Count 283 MPV 8.9 Neut % (Auto) 71.6 Lymph % (Auto) 16.0 [place] % (Auto) 9.2 Eos % (Auto) 2.7 Baso % (Auto) 0.5 Lymph # (Auto) 1.17 L [place] # (Auto) 0.67 Eos # (Auto) 0.20 Baso # (Auto) 0.04 Absolute Neutrophils 5.22 Sodium 142 Potassium 4.0 Chloride 116 H Carbon Dioxide 18 L Anion Gap 8.0 BUN 22 Creatinine 1.8 H GFR Calculation 35 Glucose 102 Calcium 8.2 L Total Bilirubin 0.3 AST 13 ALT 6 Alkaline Phosphatase 47 Total Protein 5.1 L Albumin 2.1 L Globulin 3.0 Albumin/Globulin Ratio 0.7 L Preliminary micro results at discharge 07/08/20 16:42 Blood Culture - Preliminary Blood 07/08/20 16:34 Blood Culture - Preliminary Blood Discharge Plan Patient/Caregiver Discharge Instructions Activity: increase activity as tolerated Diet: Regular Diet Prescriptions: New pantoprazole 40 mg Tablet,Delayed Release (Dr/Ec) 40 mg PO HS Qty: 30 RF: 0 ferrous sulfate 325 mg (65 mg iron) Tablet 325 mg PO QAC Qty: 30 RF: 0 morphine 10 mg capsule,extend.release pellets 10 mg PO Q12HP PRN (Reason: pain (scale score 3-10)) Qty: 6 RF: 0 Other Ambulatory Orders: Complete Blood Count (Routine) Timeframe: 3 Days Facility: [facility] - Location: Laboratory Ordered By: Florina Grossman Comprehensive Metabolic Panel (Routine) Timeframe: 3 Days Facility: [facility] - Location: Laboratory Ordered By: Florina Grossman Follow Up Plan Follow up with: Chloe Umanzor [Primary Care Provider] - Unknown [Outside] (PCP within 3 days, hospice team nicholas. [facility] for evaluation by Dr Mathews within one week. ) Patient Disposition: Hospice - Home Prognosis: Fair Discharge Orders: Discharge Order (Routine); Ordered 07/13/20 Ordered By: Florina Grossman QUALITY VTE Deep Vein Thrombosis/Pulmonary Embolism Present on Admission: No
--- NOTE | 2020-07-13 14:48 | Surgical Pathology Report ---
Histology Microscopic Diagnosis Specimen A- COLON, SIGMOID MASS, BIOPSY: -- INVASIVE MODERATELY DIFFERENTIATED ADENOCARCINOMA. Procedural Impression Sigmoid cancer; rectal polyp. Gross Description Received in formalin labeled sigmoid colon mass, are multiple fragments of linares-brown tissue ranging in size from 0.3 to 0.6 cm. Totally submitted in one cassette. Microscopic Diagnosis Specimen B- COLON, RECTUM, 10 cm, POLYPECTOMY: -- HYPERPLASTIC POLYP. (RLF:sln) Gross Description Received in formalin labeled rectal polyp 10 cm, is a linares-pink soft tissue fragment measuring 0.3 cm in greatest dimension. Totally submitted in one cassette. (EBD:adj) Electronically Signed Priscila Boogie MD, FCAP Electronically Signed 07/13/2020 2:47 PM
--- NOTE | 2020-07-14 09:32 | Internal Med Progress Note ---
SUBJECTIVE Subjective Patient information: Note initiated : 07/14/20 at 9:23 am Service Date, if different from initiated Date: 07/13/2020 1300 Patient: Shiv Gardner 80 y/o M admitted on 07/08/20 for kidney issues, anemia and was found to have an extensive pelvis mass, uremia and anemia. He has invasion of the bladder by the mass with a colovesical fistula and urine per rectum. Bilateral hydronephrosis and left ureter possibly involved in the mass. As his creatinine improved markedly with transfusion and hydration (down to 1.6) no need for urgent nephrostomy tubes or attempt stents was considered. Conversation at bedside with patient and daughter had to go over options for urinary drainage when needed. They are currently awaiting biopsy pathology and considering chemotherapy and radiation vs conservative management. Patient reports he is feeling well. no significant pain. he is hungry. Chief Complaint: [] Constitutional Vitals: Vital Signs Temp Pulse Resp BP Pulse Ox 98.5 F 75 20 135/66 96 07/13/20 18:20 07/13/20 18:20 07/13/20 18:20 07/13/20 18:20 07/13/20 18:20 Period Temp Pulse Resp BP Sys/Latham Pulse Ox Last 24 Hr 98 F-98.8 F 70-88 20-21 115-135/55-67 93-96 Intake and Output 07/13/20 07/14/20 07/14/20 21:59 05:59 13:59 Intake Total 1010 Output Total 2 Balance 1008 Intake & Output: Intake & Output 07/13/20 07/14/20 07/14/20 21:59 05:59 13:59 Intake Total 1010 Output Total 2 Balance 1008 Intake: Oral 360 Blood Product 650 Output: # of times incontinent of urine 2 Other: Meal Dinner Percent of Meal Consumed 100% Feeding Ability Assist with Tray Set Up # of times incontinent of 1 Bowels General appearance: cooperative, no acute distress and thin Head Head exam: Present atraumatic, normal inspection and normocephalic Eye Eye exam: Present EOMI; Absent periorbital swelling and scleral icterus Respiratory Respiratory exam: Absent respiratory distress, stridor and wheezes Neurological Exam Neurological exam: Present alert and oriented X3 Psychiatric Psychiatric exam: Present normal affect and normal mood; Absent agitated and anxious OBJ DATA Labs CBC & Chem 7: 07/13/20 05:14 07/13/20 05:00 Labs: Abnormal Lab Results 07/13/20 07/13/20 07/12/20 05:14 05:00 06:17 RBC 4.03 L Hgb 7.1 L Hct 27.1 L MCV 67.2 L MCH 17.6 L MCHC 26.2 L RDW 28.5 H Lymph # (Auto) 1.17 L Chloride 116 H 113 H Carbon Dioxide 18 L 17 L BUN 24 H Creatinine 1.8 H 1.6 H Glucose 109 H Calcium 8.2 L 8.4 L Total Protein 5.1 L 5.4 L Albumin 2.1 L 2.3 L Albumin/Globulin Ratio 0.7 L 0.7 L 07/12/20 06:17 RBC 4.39 L Hgb 7.8 L Hct 29.2 L MCV 66.5 L MCH 17.8 L MCHC 26.7 L RDW 28.7 H Lymph # (Auto) 1.22 L Chloride Carbon Dioxide BUN Creatinine Glucose Calcium Total Protein Albumin Albumin/Globulin Ratio A/P Narrative A/P Narrative: Patient with non operable pelvic mass compromising the left ureter and creating a colovesical fistula and invasion into bladder wall suspected. -his bladder is draining per fistula to rectum and he is doing well with this -his Cr has decreased nicely to 1.6 with transfusion and hydration -no need for urgent intervention to address hydronephrosis -went over in depth at bedside with patient and daughter stents (risk upper tract infection given they will allow communication of bladder with kidney and risk bleeding and discomfort and need to be exchanged under anesthesia) vs nephrostomy tube placement when needed -my recommendation is to await pathology, then once patient decides the degree of intervention he wants, consider nephrostomy tube placement when there is any decline in renal function or increased hydronephrosis. They can be placed in IR and changed routinely under local and will be a better environmental emergencies assistant option for him -bilateral nephrostomy tubes would allow diversion of the majority of the urine away from the colovesical fistula as well -once patient decides level intervention he wants, happy to help coordinate care -all questions answered and patient happy with no current urologic intervention and understood all of the above. Time Spent With Patient Time: Total time spent is greater than 50% in coordination of care (as documented) at patient's floor/unit and/or counseling patient: QUALITY VTE Deep Vein Thrombosis/Pulmonary Embolism Present on Admission: No
== END 2020-07-13 18:20 | disposition hospice, home (50) | DRG 375 ==
LOC: ED 11:48 → MEDSUR 17:25
PROVIDERS: ADMIT Internal Medicine; ATTEND Internal Medicine